=== PATIENT | female | born 1955 | race Caucasian/White ===

== ENCOUNTER 2024-01-25 13:09 | Inpatient (IN) | payer MEDICARE, OTHER, SELFPAY ==
[2024-01-25] VITALS (62 sets, daily range): BP systolic 86–188; BP diastolic 54–126; PULSE 65–88; RESP 0–30; TEMP 34.7–37; O2SAT 93–100; BMI 28.0
--- NOTE | 2024-01-25 13:13 | XRR_ITS ---
PROCEDURE INFORMATION: Exam: XR Chest Exam date and time: 01/25/2024 1:17 PM Age: 68 years old Clinical indication: Other: Weakness TECHNIQUE: Imaging protocol: Radiologic exam of the chest. Views: 1 view. Total images: 1 COMPARISON: No relevant prior studies available. FINDINGS: Tubes, catheters and devices: A bipolar cardiac pacemaker is present via the left subclavian approach with lead tips projecting in location expected for the right atrium and right ventricle. A dual lumen right IJ catheter is present extending into the right atrium. Lungs: Bibasilar pulmonary airspace disease is noted favored to represent compressive atelectasis although other etiologies cannot be excluded. Pleural spaces: Moderate bilateral pleural effusions are present. Heart/Mediastinum: The heart is not enlarged. Bones/joints: No acute osseous abnormality identified. Gastrointestinal tract: Moderate amount of upper abdominal bowel gas. XR/XR chest 1V portable [id number] IMPRESSION: 1. Moderate-sized bilateral pleural effusions. 2. Bibasilar pulmonary opacities favored to represent atelectasis although could obscure other underlying process.
--- NOTE | 2024-01-25 13:14 | ECG_ITS ---
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 Measurements Intervals [place] Rate: 85 P: 26 NM: 155 QRS: 9 QRSD: 89 T: 32 QT: 377 QTc: 449 Interpretive Statements SINUS RHYTHM LOW QRS VOLTAGE [QRS DEFLECTION < 0.5/1.0 mV IN LIMB/CHEST LEADS] POSSIBLE ANTERIOR MYOCARDIAL INFARCTION , PROBABLY OLD [30 ms Q WAVE IN V3/V4, OR R < 0.2 mV IN V4] Diffuse nonspecific T wave changes No previous ECG available for comparison Electronically Signed On 01-25-2024 23:30:49 CDT by Bernarda Oates M.D. [id number]
--- NOTE | 2024-01-25 13:29 | ED_ITS ---
HPI - Weakness 2 General: Chief complaint: Weakness Stated complaint: Hypotensive Time Seen by Provider: 01/25/24 13:10 Source: patient and EMS Mode of arrival: EMS Limitations: no limitations History of Present Illness: 68-year-old female history of end-stage renal disease she is on dialysis Wednesday her last dialysis was Wednesday she states while driving to dialysis today she has been having weakness she had a syncopal event as well. Patient was found to be hypotensive at dialysis center and sent here she did not receive dialysis today she denies any pain anywhere denies any fevers she had some increased swelling to her upper extremities Associated symptoms: Reports syncope; Denies chest pain, chills, dysuria, fever(s), headache(s), nausea or vomiting Review of Systems 2 Const: Reports: fatigue and malaise; Denies: fever(s), chills, body aches or change in appetite ENMT: Denies: throat pain or dental pain Card: Reports: syncope; Denies: chest pain Resp: Denies: dyspnea GI: Denies: abdominal pain, nausea, vomiting or diarrhea : Denies: dysuria Musc: Denies: neck pain or back pain Skin/Breast: Denies: rash Neuro: Denies: headache(s) Physical Exam 2 Const: COMMON NORMALS: patient oriented x3 HENMT: COMMON NORMALS: normocephalic and atraumatic HEAD & SCALP: n ormocephalic and atraumatic Eye: COMMON NORMALS: Equal, round and reactive pupils present and EOMs intact bilaterally PUPIL: Yes Equal, round and reactive pupils present Neck/C-Spine: COMMON NORMALS: full ROM and supple Chest: COMMONS NORMALS: normal inspection of the chest Resp: COMMON NORMALS: normal respiratory effort, No retractions, No use of accessory muscles and clear to auscultation bilaterally AUSCULTATION: clear to auscultation bilaterally Cardio: COMMON NORMALS: regular rate, regular rhythm and No murmurs present (Cardio) RATE: regular rate RHYTHM: regular rhythm Extremity: COMMON NORMALS: full ROM NARRATIVE EXTREMITY EXAM: Skin tear noted to left arm she has swelling 2+ edema of all 4 extremities Neuro: COMMON NORMALS: patient oriented x3, moves all extremities and no focal motor deficits Psych: COMMON NORMALS: mental status grossly normal, Normal thought process present and cooperative THOUGHT PROCESS: Normal thought process present Skin: COMMON NORMALS: no rashes or lesions noted and no wounds GENERAL SKIN EXAM: no rashes or lesions noted Course 2 Vital Signs: Vital signs: Vital Signs Temperature 97.8 F 01/25/24 14:20 Pulse Rate 82 01/25/24 15:46 Respiratory Rate 18 01/25/24 13:44 Blood Pressure 91/73 01/25/24 15:46 Pulse Oximetry 100 01/25/24 15:46 Oxygen Delivery Me thod Room Air 01/25/24 15:46 MDM - Weakness Medical Decision Making Patient presents here after syncopal event she is on dialysis does not receive dialysis treatment today as she was hypotensive at the dialysis clinic her blood pressure here is improved blood work is normal she still having weakness will admit at this time for syncopal event and her hypotension no signs of sepsis did have pleural effusions noted on x-ray Medical Records I reviewed the patient's medical records. Lab Data I reviewed the patient's lab results. 01/25/24 13:41 01/25/24 13:41 Radiology Impressions Chest X-Ray 01/25/24 13:13 IMPRESSION: 1. Moderate-sized bilateral pleural effusions. 2. Bibasilar pulmonary opacities favored to represent atelectasis although could obscure other underlying process. Laboratory Results WBC 3.65 10^3/uL (3.29-11.43) 01/25/24 13:41 RBC 2.92 10^6/uL (3.85-5.65) L 01/25/24 13:41 Hgb 8.70 g/dL (11.27-16.99) L 01/25/24 13:41 Hct 27.2 % (36-47) L 01/25/24 13:41 MCV 93.2 fl (85-98) 01/25/24 13:41 MCH 29.8 pg (27-33) 01/25/24 13:41 MCHC 32.0 g/dL (30-55) 01/25/24 13:41 RDW 15.2 % (12.1-15.1) H 01/25/24 13:41 Plt Count 395 10^3/cmm (157-399) 01/25/24 13:41 MPV 9.0 fL (7.4-10.4) 01/25/24 13:41 Neut % (Auto) 57.0 % 01/25/24 13:41 Lymph % (Auto) 30.1 % 01/25/24 13:41 [place] % (Auto) 7.7 % 01/25/24 13:41 Eos % (Auto) 1.9 % 01/25/24 13:41 Baso % (Auto) 3.0 % 01/25/24 13:41 Neut # (Auto) 2.08 10^3/uL (1.8-7.7) 01/25/24 13:41 Lymph # (Auto) 1.1 10^3/uL (0.8-4.8) 01/25/24 13:41 [place] # (Auto) 0.3 10^3/uL (0.2-0.9) 01/25/24 13:41 Eos # (Auto) 0.1 10^3/uL (0.0-0.8) 01/25/24 13:41 Baso # (Auto) 0.1 10^3/uL (0.0-0.1) 01/25/24 13:41 Nucleated RBC % (auto) 0 % 01/25/24 13:41 Nucleated RBCs # 0.0 /100WBC 01/25/24 13:41 Sodium 134 mmol/L (136-145) L 01/25/24 13:41 Potassium 3.4 mmol/L (3.5-5.1) L 01/25/24 13:41 Chloride 97 mmol/L (98-107) L 01/25/24 13:41 Carbon Dioxide 26 mmol/L (22-29) 01/25/24 13:41 Anion Gap 14.4 (5-19) 01/25/24 13:41 BUN 16 mg/dL (8-23) 01/25/24 13:41 Creatinine 2.6 mg/dL (0.5-0.9) H 01/25/24 13:41 GFR Calculation 18.4 mL/min (90-130) L 01/25/24 13:41 Glucose 76 mg/dL (65-115) 01/25/24 13:41 Calculated Osmolality 278 mOsm/kg (285-295) L 01/25/24 13:41 Lactic Acid 1.7 mmol/L (0.5-2.2) 01/25/24 13:41 Calcium 8.2 mg/dL (8.5-10.5) L 01/25/24 13:41 Magnesium 1.8 mg/dL (1.7-2.3) 01/25/24 13:41 Total Bilirubin 0.3 mg/dL (0.15-1.2) 01/25/24 13:41 AST 9 U/L (0-32) 01/25/24 13:41 ALT < 5 U/L (0-33) 01/25/24 13:41 Alkaline Phosphatase 122 U/L (35-105) H 01/25/24 13:41 Troponin T Baseline 102 ng/L (0-10) H* 01/25/24 13:41 NT-Pro-B Natriuret Pep > 41652 pg/mL (0-125) H 01/25/24 13:41 Total Protein 4.8 g/dL (6.6-8.7) L 01/25/24 13:41 Albumin 2.3 g/dL (3.5-5.2) L 01/25/24 13:41 Globulin 2.5 g/dL (1.3-4.6) 01/25/24 13:41 All radiology interpretation(s) finalized by discharge EKG Data EKG 1: I personally reviewed and interpreted this EKG as follows: EKG interpretation date: 01/25/24 EKG interpretation time: 14:05 Interpretation: nsr hr [address] or t wave abnormalities qr 89 qtc 419 Discharge Plan Discharge Patient Disposition: Admitted As Inpatient Admit Provider: Jacinto Schmidt Clinical Impression: Syncope, ESRD on dialysis, Hypotension Condition: Stable Coding Level of Care Code 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 Related Data Home Medications Medication Instructions Recorded Confirmed apixaban 5 mg tablet (Eliquis) 5 mg PO BID 01/25/24 01/25/24 droxidopa 300 mg capsule 300 mg PO TID PRN parkinsons 01/25/24 01/25/24 ergocalciferol (vitamin D2) 1,250 50,000 mcg PO Q7D 01/25/24 01/25/24 mcg (50,000 unit) capsule fludrocortisone 0.1 mg tablet 0.1 mg PO BID 01/25/24 01/25/24 levothyroxine 125 mcg tablet 125 mcg PO QAM 01/25/24 01/25/24 mupirocin 2 % topical ointment 1 applic topical DAILY 01/25/24 01/25/24 pantoprazole 40 mg tablet,delayed 40 mg PO BID 01/25/24 01/25/24 release Allergies Allergy/AdvReac Type Severity Reaction Status Date / Time No Known Allergies Allergy Verified 01/25/24 14:19
[2024-01-25 13:47] LABS: Basophils # 0.1 10^3/uL (0.0-0.1); Eosinophils # 0.1 10^3/uL (0.0-0.8); Eosinophils % 1.9 %; Hematocrit 27.2 % (36-47); Lymphocytes # 1.1 10^3/uL (0.8-4.8); Lymphocytes % 30.1 %; Mean Corpuscular Hemoglobin 29.8 pg (27-33); Mean Corpuscular Volume 93.2 fl (85-98); Monocytes # 0.3 10^3/uL (0.2-0.9); Monocytes % 7.7 %; Neutrophils # 2.08 10^3/uL (1.8-7.7); Nucleated Red Blood Cells % 0 %; Platelet Count 395 10^3/cmm (157-399); Red Blood Count 2.92 10^6/uL (3.85-5.65); Red Cell Distribution Width 15.2 % (12.1-15.1); White Blood Count 3.65 10^3/uL (3.29-11.43)
[2024-01-25 14:03] LABS: Lactic Sepsis W/Reflex 1.7 mmol/L (0.5-2.2)
--- NOTE | 2024-01-25 14:11 | PC.PHAR ---
per [facility]-Droxidopa 300mg is 3 times daily. Brianne Dillard sets up pt medications.
[2024-01-25 14:13] LABS: Alanine Aminotransferase < 5 U/L (0-33); Albumin Level 2.3 g/dL (3.5-5.2); Alkaline Phosphatase 122 U/L (35-105); Anion Gap 14.4 (5-19); Aspartate Amino Transferase 9 U/L (0-32); Blood Urea Nitrogen 16 mg/dL (8-23); Calcium 8.2 mg/dL (8.5-10.5); Carbon Dioxide 26 mmol/L (22-29); Chloride 97 mmol/L (98-107); Creatinine Clr Calc Pharmacy 23.2702; Globulin 2.5 g/dL (1.3-4.6); Glomerular Filtration Rate 18.4 mL/min (90-130); Glucose 76 mg/dL (65-115); Magnesium 1.8 mg/dL (1.7-2.3); Osmolality Calculated 278 mOsm/kg (285-295); Potassium 3.4 mmol/L (3.5-5.1); Sodium 134 mmol/L (136-145); Total Bilirubin 0.3 mg/dL (0.15-1.2); Total Protein 4.8 g/dL (6.6-8.7)
[2024-01-25 15:01] LABS: Troponin(5th) Baseline 102 ng/L (0-10)
[2024-01-25 15:12] LABS: NT Pro B Type Natriuretic Pept > 70000 pg/mL (0-125)
[2024-01-25] MEDS: cefTRIAXone 1,000 mg SDV 1000 MG IVP (15:40)
[2024-01-25] MEDS: azithromycin 500 MG in sodium chloride 0.9% 250 ML 250 MG IV (15:54)
[2024-01-25 15:57] LABS: Troponin 5 2HR 87.87 ng/L (0-10)
[2024-01-25 15:59] LABS: Troponin 5 2HR Delta -14.13 ABS# (0-10)
--- NOTE | 2024-01-25 16:27 | ECG_ITS ---
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 Measurements Intervals [place] Rate: 75 P: 41 CO: 169 QRS: 1 QRSD: 91 T: 180 QT: 464 QTc: 519 Interpretive Statements SINUS RHYTHM WITH OCCASIONAL SUPRAVENTRICULAR PREMATURE COMPLEXES LOW QRS VOLTAGE IN EXTREMITY LEADS [QRS DEFLECTION < 0.5 mV IN LIMB LEADS] POSSIBLE ANTERIOR MYOCARDIAL INFARCTION , OF INDETERMINATE AGE [30 ms Q WAVE IN V3/V4, OR R < 0.2 mV IN V4] Diffuse nonspecific ST-T changes Compared to ECG 01/25/2024 14:05:39 No significant changes Electronically Signed On 01-25-2024 23:43:16 CDT by Bernarda Oates M.D. [id number]
--- NOTE | 2024-01-25 16:41 | PM.HP ---
Providers/Chief Complaint Admitting Physician: Jacinto Schmidt MD Chief Complaint: Hypotensive History of Present Illness Nikki Venegas is a 68 year old female with a past medical history of neurogenic orthostatic hypotension on droxidopa and fludrocortisone, history of low blood pressure, history of recurrent syncope especially when her legs are dropped, end-stage renal disease on dialysis causes unknown, Melva lift dependent, bedbound, who presents to [facility] due to low blood pressure and syncope. Currently patient is alert oriented x 3, following all commands, blood pressure 91/73 she tells me that to not worry about her blood pressure, as her blood pressure is always low. She tells me that her medical case starts in May 2023, when she was climbing her stairs to her home, she had just returned from work and she passed out. From there she got it admitted to [facility], she developed end-stage renal disease, had a right tunneled dialysis catheter placed, from there she was transferred due to [facility] due to recurrent syncope and low blood pressure, from there she was transferred to [facility] as she tells me they could not figure it out, so from there she was transferred to [facility], she jokes with me that she was considered a resident at [facility] as she was there for a month, she is not exactly sure why she was there for that long but she tells me that she was having issues with low blood pressures, and recurrent syncope, from there she was transferred to [facility] in [place]. She tells me that she did have good physical therapy she got up a good amount of dialysis there, they took about 20 pounds of fluid off of her, and eventually she was discharged home. She has been home for about a month and a half. She gets dialysis the outpatient dialysis center she tells me that she does frequently at times pass out, which is not unusual for her, especially when her blood pressures drop when she stands up her legs are dropped this is not unusual. This is what was happening she tells me at [facility] and at [facility] and they could not figure why this was happening, they told her that she had something called neurogenic orthostatic hypotension, but they could not find any other reason why, she denies having a heart attack, no stroke no diabetes, no issues with her liver, she denies being intubated, she is quite fluid overloaded currently she has diffuse anasarca, weeping edema of her both arms or legs, she tells me that she has been like this for about a week or so, they did take fluid off of her at the dialysis center more than a week ago, but since then they have been taking fluid off of her because of her low blood pressure, she is supposed to use a droxidopa before dialysis. She is not exactly sure why she is on dialysis, but that she is in renal failure she does not urinate anymore but she is not exactly sure what is the cause. She tells me that before her fall in May she was fully functional individual able to work, was able to take care of herself, now she is fully dependent on her Review of Systems Const: Denies: fever(s) Eyes: Denies: change in vision Card: Denies: chest pain Resp: Denies: dyspnea GI: Denies: abdominal pain : Denies: flank pain Musc: Denies: neck pain or back pain Neuro: Denies: headache(s) Psych: Denies: anxiety Medications/Allergies Home Medications Medication Instructions Recorded Confirmed Last Taken Type apixaban 5 mg tablet (Eliquis) 5 mg PO BID 01/25/24 01/25/24 01/25/24 History droxidopa 300 mg capsule 300 mg PO TID PRN parkinsons 01/25/24 01/25/24 Unknown History ergocalciferol (vitamin D2) 1,250 50,000 mcg PO Q7D 01/25/24 01/25/24 01/23/24 History mcg (50,000 unit) capsule fludrocortisone 0.1 mg tablet 0.1 mg PO BID 01/25/24 01/25/24 01/25/24 History levothyroxine 125 mcg tablet 125 mcg PO QAM 01/25/24 01/25/24 01/25/24 History mupirocin 2 % topical ointment 1 applic topical DAILY 01/25/24 01/25/24 Unknown History pantoprazole 40 mg tablet,delayed 40 mg PO BID 01/25/24 01/25/24 01/25/24 History release Allergies Allergy/AdvReac Type Severity Reaction Status Date / Time No Known Allergies Allergy Verified 01/25/24 14:19 PFSH Acute PFSH: Medical History (Updated 01/25/24 @ 16:56 by Jacinto Schmidt MD) Chronic hypotension Recurrent syncope Neurogenic orthostatic hypotension Surgical History (Updated 01/25/24 @ 16:51 by Jacinto Schmidt MD) S/P dialysis catheter insertion History of permanent cardiac pacemaker placement Social History (Updated 01/25/24 @ 16:51 by Jacinto Schmidt MD) Smoking and tobacco/nicotine status: never used tobacco/nicotine Alcohol intake: never Substance/Drug Use: never Vitals/I&O/Wt Last Vital Signs Temp 97.8 F 01/25/24 14:20 Pulse 82 01/25/24 15:46 Resp 18 01/25/24 13:44 BP 91/73 01/25/24 15:46 Pulse Ox 100 01/25/24 15:46 O2 Del Method Room Air 01/25/24 15:46 Weight last 48 hrs Weight 80.739 kg Physical Exam Const: COMMON NORMALS: no acute distress and patient oriented x3 OTHER: Ill-appearing HENMT: COMMON NORMALS: normocephalic HEAD & SCALP: normocephalic Eye: COMMON NORMALS: Equal, round and reactive pupils present and EOMs intact bilaterally Neck/C-Spine: COMMON NORMALS: no JVD Lymph: LYMPHATIC: no lymphadenopathy noted Resp: COMMON NORMALS: normal respiratory effort, No retractions, No use of accessory muscles and clear to auscultation bilaterally AUSCULTATION: clear to auscultation bilaterally Cardio: COMMON NORMALS: regular rate, regular rhythm, S1 normal heart sound present and S2 normal heart sound present RATE: regular rate RHYTHM: regular rhythm HEART SOUNDS: S1 normal heart sound present and S2 normal heart sound present GI: COMMON NORMALS: Normal to inspection, nondistended, normoactive bowel sounds present, Soft to palpation and non-tender Extremity: NARRATIVE EXTREMITY EXAM: 2+ pitting edema, generalized anasarca, edema of both arms Neuro: COMMON NORMALS: patient oriented x3, CN's II-XII intact bilaterally and moves all extremities Psych: COMMON NORMALS: mental status grossly normal Data 01/25/24 13:41 01/25/24 13:41 Micro: Microbiology 01/25/24 14:14 Blood Culture - Preliminary Blood SPECIMEN COLLECTED 01/25/24 14:10 Blood Culture - Preliminary Blood SPECIMEN COLLECTED A&P Assessment and plan (1) Chronic hypotension: (2) Chronic orthostatic hypotension: (3) Recurrent syncope: (4) Neurogenic orthostatic hypotension: (5) Hypotension: (6) ESRD on dialysis: (7) Bilateral pleural effusion: (8) Hypoalbuminemia: Plan Chronic neurogenic orthostatic hypotension, with chronic recurrent syncope, with chronic hypotension -It seems as if patient is not responding that well to droxidopa 300 mg 3 times daily -She is never been on midodrine -The issue with dialysis is she is either developing hypotension, recurrent syncope during dialysis, -But she does very well when she is placed in Trendelenburg and they can dialyze her -When she was at [facility] she tells her that took almost 20 pounds of fluid off of her -Now with fluid overload, anasarca, CHF exacerbation, pulmonary edema, bilateral pleural effusions, BNP over 70,000 Plan -Will monitor in ICU -Placed on midodrine 10 3 times daily -Continue droxidopa -Will consider Levophed based on clinical progress, will be a short-term option, but will need a better long-term option as this is going to be an issue at dialysis as outpatient -Consult nephrology for dialysis -Monitor for syncopal episodes if so placed in Trendelenburg, -Continue fludrocortisone -Follow inflammatory markers, UA -NSTEMI, no chest pain complaints, aspirin, statin, Eliquis, tourniquet is concerned multiple telemetry monitoring -She tells me that she is on Eliquis for atrial fibrillation, continue for now -She also has hyperlipidemia, with anasarca, can consider albumin with dialysis -Will have to get medical records from [facility] as she is unsure of what happened during that hospitalization -Check TSH -Cardiac echo -DNR/DNI, confirmed with the patient multiple times -Eliquis for DVT prophylaxis Attestations Medical Necessity Statement*: Patient requires hospitalization, inpatient, greater than 2 midnights, for CHF exacerbation fluid overload bilateral pleural effusions, anasarca, NSTEMI, recurrent syncope Diagnoses Chronic hypotension I95.89 Chronic orthostatic hypotension I95.1 Recurrent syncope R55 Neurogenic orthostatic hypotension G90.3 Hypotension I95.9 ESRD on dialysis N18.6; Z99.2 Bilateral pleural effusion J90 Hypoalbuminemia E88.09
[2024-01-25 17:19] LABS: INR 1.68 (0.8-1.2)
--- NOTE | 2024-01-25 17:27 | USCV_ITS ---
Nikki Venegas Age: 68 Gender: F : 1955 Exam Date: 01/25/2024 18:57 Ordering Phys: Jacinto Schmidt MD Technologist: JOSE [place] [facility] [place]: NSTEMI, end-stage renal disease , on dialysis, weakness, syncope. BP: 91 / 73 HR: 72 Rhythm: Sinus Technical Quality: Adequate MEASUREMENTS (Male / Female) Normal Values 2D ECHO LV Diastolic Diameter PLAX 3.5 cm 4.2 - 5.9 / 3.9 - 5.3 cm IVS Diastolic Thickness 1.6 cm 0.6 - 1.0 / 0.6 - 0.9 cm IVS Systolic Thickness 2.3 cm LVPW Diastolic Thickness 1.3 cm 0.6 - 1.0 / 0.6 - 0.9 cm LVPW Systolic Thickness 2.5 cm LVOT Diameter 2.3 cm LV Ejection Fraction 2D Teich 76.2 % LV Ejection Fraction MOD 4C 67.9 % LV Ejection Fraction MOD 2C 60.5 % LV Ejection Fraction 2C AL 61.1 % LA Diameter 2.7 cm Aorta at Sinotubular Diameter 3.4 cm IVC Diameter 0.9 cm M-MODE LA Ao Ratio MM 1.0 AV Cusp Separation MM 1.8 cm DOPPLER AV Peak Velocity 92.0 cm/s LVOT Peak Velocity 83.0 cm/s AV Area Cont Eq vti 4.0 cm squared AV Area Cont Eq pk 3.6 cm squared MV Peak Velocity 94.0 cm/s MV Area PHT 3.9 cm squared Mitral E to A Ratio 0.7 TV Peak E Velocity 32.0 cm/s PV Peak Velocity 76.0 cm/s FINDINGS Left Ventricle Normal LV size and ejection fraction of 68%. No gross wall motion abnormality.Grade I/IV diastolic dysfunction (abnormal relaxation filling pattern), normal to mildly elevated filling pressures. Right Ventricle Normal size and ejection fraction Right Atrium Appears to be of normal size Left Atrium Appears to be of normal size Mitral Valve Moderate mitral annular calcification. Aortic Valve Thickened aortic valve. Tricuspid Valve No gross abnormalities noted Pulmonic Valve Pulmonic valve not well visualized. Pericardium Small echo-free space anteriorly suggesting pericardial effusion Aorta Large echo-free space in the anterolateral region apical lateral region with echodensities, suggesting exudative pleural effusion IVC Inferior vena cava not visualized. CONCLUSIONS Normal LV size and ejection fraction of 68%. No gross wall motion abnormality.Grade I/IV diastolic dysfunction (abnormal relaxation filling pattern), normal to mildly elevated filling pressures. Moderate mitral annular calcification. Possibly normal cardiac chamber sizes. Thickened aortic valve. Possibly large exudative pleural effusion Features of small pericardial effusion No similar previous studies are available for comparison Dr Bernarda Oates MD [facility] (Electronically Signed) Final Date: 25 January 2024 21:25 S
--- NOTE | 2024-01-25 17:29 | PC.NURSE ---
Patient arrived to ICU around approximately 1520. V/S in chart, temp 94.4, dry linens and warm blankets applied to patient.
[2024-01-25] MEDS: aspirin 81 mg EC Tablet PO (17:38)
[2024-01-25] MEDS: fludrocortisone 0.1 mg Tablet PO (17:38)
[2024-01-25] MEDS: midodrine 5 mg TABLET 10 MG PO ×2 (17:38→20:38)
[2024-01-25] MEDS: apixaban 5 mg Tablet PO (17:38)
[2024-01-25] MEDS: pantoprazole DR 40 mg Tablet PO (17:39)
[2024-01-25 18:24] LABS: Procalcitonin 0.14 ng/mL (0-0.5); Thyroid Stimulating Hormone 2.11 uIU/mL (0.27-4.20)
[2024-01-25 18:36] LABS: C Reactive Protein 3.5 mg/L (0.0-4.9); Chol HDL Ratio 4.25 mg/dL (0.0-4.40); Cholesterol 217 mg/dL (0-200); Creatine Phosphokinase 16 U/L (26-192); HDL Cholesterol 51 mg/dL (60-100); LDL Cholesterol Calculated 139 mg/dL (50-129); LDL HDL Ratio 2.73 RATIO (0.00-3.22); Triglycerides 135 mg/dL (0-150)
--- NOTE | 2024-01-25 19:51 | P.CONIM_ITS ---
Providers/Reason For Consult 2 Consulting Physician/Specialty*: kommana/Nephrology Reason for Consult*: ESRD Attending Physician: Jacinto Schmidt MD History of Present Illness History of Present Illness Nikki Venegas is a 68 year old female Patient is a 68-year-old female with past medical history of end-stage renal disease on hemodialysis per Wednesday schedule, has autonomic dysfunction and orthostatic hypotension currently on droxidopa and fludrocortisone, has recurrent syncopal episodes was sent to the emergency department due to low blood pressure and near syncope. Reports blood pressure always fluctuates and usually runs low low dialysis. Patient had a prior extensive workup and for long past physicians at [facility] due to recurrent syncope and hypotension. In the emergency department blood pressure was at 91/73, was on room air, lab data shows sodium of 134 potassium of 3.4 and creatinine of 2.6 and hemoglobin of 8.7. . Review of Systems 2 Narrative: negative Medications/Allergies Home Medications Medication Instructions Recorded Confirmed Last Taken Type apixaban 5 mg tablet (Eliquis) 5 mg PO BID 01/25/24 01/25/24 01/25/24 History droxidopa 300 mg capsule 300 mg PO TID PRN parkinsons 01/25/24 01/25/24 Unknown History ergocalciferol (vitamin D2) 1,250 50,000 mcg PO Q7D 01/25/24 01/25/24 01/23/24 History mcg (50,000 unit) capsule fludrocortisone 0.1 mg tablet 0.1 mg PO BID 01/25/24 01/25/24 01/25/24 History levothyroxine 125 mcg tablet 125 mcg PO QAM 01/25/24 01/25/24 01/25/24 History mupirocin 2 % topical ointment 1 applic topical DAILY 01/25/24 01/25/24 Unknown History pantoprazole 40 mg tablet,delayed 40 mg PO BID 01/25/24 01/25/24 01/25/24 History release Allergies Allergy/AdvReac Type Severity Reaction Status Date / Time No Known Allergies Allergy Verified 01/25/24 14:19 Current Medications Generic Name Dose Route Start Last Admin Trade Name Freq PRN Reason Stop Dose Admin Apixaban 5 mg 01/25/24 18:00 01/25/24 17:38 Apixaban 5 Mg Tablet PO 5 mg BID AKOSUA Administration Aspirin 81 mg 01/25/24 17:27 01/25/24 17:38 Aspirin 81 Mg Ec Tablet PO 81 mg DAILY AKOSUA Administration Fludrocortisone Acetate 0.1 mg 01/25/24 18:00 01/25/24 17:38 Fludrocortisone 0.1 Mg Tablet PO 0.1 mg BID AKOSUA Administration Midodrine 10 mg 01/25/24 17:27 01/25/24 17:38 Midodrine 5 Mg Tablet PO 10 mg Q8H AKOSUA Administration Pantoprazole Sodium 40 mg 01/25/24 18:00 01/25/24 17:[address] 40 Mg Tablet PO 40 mg BID AKOSUA Administration PFSH Acute 2 PFSH: Medical History (Updated 01/25/24 @ 16:56 by Jacinto Schmidt MD) Chronic hypotension Recurrent syncope Neurogenic orthostatic hypotension Surgical History (Updated 01/25/24 @ 16:51 by Jacinto Schmidt MD) S/P dialysis catheter insertion History of permanent cardiac pacemaker placement Social History (Updated 01/25/24 @ 16:51 by Jacinto Schmidt MD) Smoking and tobacco/nicotine status: never used tobacco/nicotine Alcohol intake: never Substance/Drug Use: never Vitals/I&O/Wt Last Vital Signs Temp 94.4 F L 01/25/24 18:00 Pulse 76 01/25/24 18:00 Resp 16 01/25/24 18:00 BP 112/76 01/25/24 18:00 Pulse Ox 100 01/25/24 17:59 O2 Del Method Room Air 01/25/24 17:59 01/25/24 01/25/24 01/25/24 06:59 14:59 22:59 Intake Total 250 / 250 Balance 250 / 250 Weight last 48 hrs Weight 79 kg Weight 80.739 kg Physical Exam 2 Narrative: awake , alert no distress S1S2 RRR per report Lungs clear per mediicne No edema Data 01/26/24 04:11 01/25/24 13:41 Micro: Microbiology 01/25/24 14:14 Blood Culture - Preliminary Blood SPECIMEN COLLECTED 01/25/24 14:10 Blood Culture - Preliminary Blood SPECIMEN COLLECTED A&P Assessment and plan (1) ESRD on dialysis: Plan 1. End-stage renal disease: Etiology unclear, was started on dialysis in May 2023 via tunneled catheter. -Patient has fluctuating blood pressures and orthostatic hypotension/probable autonomic dysfunction Dippel prior episodes of recurrent syncope and hypotension during dialysis. -Takes droxidopa as well as fludrocortisone and as needed midodrine -Will plan on dialysis today, will give 1 dose of midodrine 30 minutes prior to dialysis and filtration as tolerated. Patient is volume overloaded 2. Recurrent syncope and orthostatic hypotension: Patient was extensively worked up in the past currently on fludrocortisone, currently blood pressures are stable in the 90s to 1 teens range. 3. Anemia: Will give WILFRIDO 4. HypothyroidISM 5. MBD: Will check Phos and vitamin D levels Patient evaluated using audiovisual cart. Time spent 40 minutes Consult Attestations 2 Medical Necessity Statement: per eliel Coding Level of Care Code Acute Code for Chg Fwd Diagnoses ESRD on dialysis N18.6; Z99.2
--- NOTE | 2024-01-25 20:27 | ECG_ITS ---
[facility] Test Date: 2024-01-25 Pat Name: Nikki Venegas Department: Room: ICU09 Gender: Female [employer]: : 1955 Requested By: Dylan Buchanan Order Number: [id number] Milvia MD: Bernarda Oates M.D. Measurements Intervals [place] Rate: 73 P: 38 ID: 150 QRS: 22 QRSD: 92 T: 210 QT: 452 QTc: 500 Interpretive Statements SINUS RHYTHM LOW QRS VOLTAGE IN EXTREMITY LEADS [QRS DEFLECTION < 0.5 mV IN LIMB LEADS] POSSIBLE ANTERIOR MYOCARDIAL INFARCTION , OF INDETERMINATE AGE [30 ms Q WAVE IN V3/V4, OR R < 0.2 mV IN V4] Diffuse nonspecific ST-T changes Compared to ECG 01/25/2024 17:39:02 No significant changes Electronically Signed On 01-25-2024 23:43:39 CDT by Bernarda Oates M.D. [id number]
--- NOTE | 2024-01-25 20:48 | PC.NURSE ---
1934: Yandel(EDITD) approached me wanted to report that this patient has Bilateral Large Pleural Effusions that I would call Critical Findings . 1937: Dr. Thurman was notified via phone report. No new orders. He requested to let nephrology know. 1951: Dr. Palmer was notified of the findings. She wanted to do dialysis for tomorrow and to change the Midodrine from 0127 and 0900 to 2300 and 0700. 1954: Dr Palmer called back and wanted to do dialysis tonight and change the Midodrine to now and 0700.
[2024-01-25] MEDS: atorvastatin 40 mg Tablet PO (20:57)
[2024-01-25 22:12] LABS: Troponin 5 6HR 85.92 ng/L (0-10)
[2024-01-25 22:14] LABS: Troponin 5 6HR Delta -16.08 ng/L (0-12)
[2024-01-25 22:26] LABS: Erythrocyte Sedimentation Rate 1 mm/hr (0-15)
[2024-01-25 22:54] LABS: Hepatitis B Surface AB 3.8 (11.5-1000); Hepatitis B Surface Antigen Non-Reactive (Nonreactive)
[2024-01-25] MEDS: heparin, porcine 1,000 unit/mL INJ 10 mL 1000 UNIT IV (23:23)
[2024-01-25] MEDS: heparin, porcine 1,000 unit/mL INJ 10 mL 10000 UNIT INTRACATH (23:24)
--- NOTE | 2024-01-25 23:31 | PC.HD ---
RIJ tunnelled catheter insertion site has pencil eraser sized redness under the cath, brown crusty debris noted to be adhered to underside of cath at insertion point, debris removed and site cleaned with CHG and redressed with SkinPrep, BRANDAN, and Covaderm dressing.
[2024-01-25] MEDS: albumin 12.5 GM/50 ML VIAL IV (23:52)
[2024-01-26] VITALS (72 sets, daily range): BP systolic 95–170; BP diastolic 71–101; PULSE 60–79; RESP 11–19; TEMP 34.9–36.2; O2SAT 94–100; BMI 26.5
[2024-01-26] MEDS: albumin 12.5 GM/50 ML VIAL IV (00:27)
[2024-01-26 02:02] LABS: Estmated Average Glucose 94; Hemoglobin A1C 4.9 % (4.0-6.0)
[2024-01-26 04:21] LABS: Basophils # 0.1 10^3/uL (0.0-0.1); Basophils % 1.2 %; Eosinophils % 0.7 %; Hematocrit 21.8 % (36-47); Lymphocytes # 1.7 10^3/uL (0.8-4.8); Lymphocytes % 42.2 %; Mean Corpuscular HGB Conc 32.6 g/dL (30-55); Mean Corpuscular Volume 95.2 fl (85-98); Mean Platelet Volume 9.4 fL (7.4-10.4); Monocytes # 0.5 10^3/uL (0.2-0.9); Monocytes % 11.5 %; Neutrophils % 44.2 %; Nucleated Red Blood Cells % 0 %; Platelet Count 307 10^3/cmm (157-399); Red Blood Count 2.29 10^6/uL (3.85-5.65); Red Cell Distribution Width 15.4 % (12.1-15.1); White Blood Count 4.08 10^3/uL (3.29-11.43)
[2024-01-26] MEDS: levothyroxine 125 mcg Tablet PO (05:55)
--- NOTE | 2024-01-26 08:13 | PM.PN ---
Subjective Subjective: s/p hemodialysis last night with 2.5 L ultrafiltration Medications: Reviewed: Yes Vitals/I&O/Wt Last Vital Signs Temp 96.9 F L 01/26/24 04:00 Pulse 66 01/26/24 06:00 Resp 13 01/26/24 04:10 BP 167/98 01/26/24 04:10 Pulse Ox 100 01/26/24 04:10 O2 Del Method Room Air 01/26/24 00:00 O2 Flow Rate 2 01/25/24 19:00 01/25/24 01/26/24 01/26/24 22:59 06:59 14:59 Intake Total 250 / 250 585 / 835 Output Total 0 / 0 3000 / 3000 Balance 250 / 250 -2415 / -2165 Weight last 48 hrs Weight 74.5 kg Weight 79.5 kg Weight 79 kg Weight 80.739 kg Physical Exam Narrative: awake , alert no distress S1S2 RRR per report Lungs clear per [facility] No edema Data 01/26/24 04:11 01/25/24 13:41 Micro: Microbiology 01/25/24 14:14 Blood Culture - Preliminary Blood SPECIMEN COLLECTED 01/25/24 14:10 Blood Culture - Preliminary Blood SPECIMEN COLLECTED A&P Assessment and plan (1) ESRD on dialysis: Plan 1. End-stage renal disease: Etiology unclear, was started on dialysis in May 2023 via tunneled catheter. -Patient has fluctuating blood pressures and orthostatic hypotension/probable autonomic dysfunction, prior episodes of recurrent syncope and hypotension during dialysis. -Takes droxidopa as well as fludrocortisone and as needed midodrine - Patient is volume overloaded - s/p HD last night with 2.5 L UF , Tolerated well , with no BP drop -BP elevated , decrease midodrine to 5 mg TID 2. Recurrent syncope and orthostatic hypotension: Patient was extensively worked up in the past currently on fludrocortisone, currently blood pressures are stable in the 90s to 1 teens range. 3. Anemia: Will give WILFRIDO 4. HypothyroidISM 5. MBD: Will check Phos and vitamin D levels Patient evaluated using audiovisual cart. Time spent 40 minutes Attestations Medical Necessity Statement*: PER [facility] Coding Level of Care Code Acute Code for Chg Fwd Diagnoses ESRD on dialysis N18.6; Z99.2
[2024-01-26] MEDS: fludrocortisone 0.1 mg Tablet PO ×2 (08:49→17:02)
[2024-01-26] MEDS: apixaban 5 mg Tablet PO (08:49)
[2024-01-26] MEDS: midodrine 5 mg TABLET PO ×2 (08:49→17:03)
[2024-01-26] MEDS: pantoprazole DR 40 mg Tablet PO ×2 (08:49→17:02)
[2024-01-26] MEDS: aspirin 81 mg EC Tablet PO (08:49)
[2024-01-26] MEDS: epoetin alfa 10,000 unit/mL INJ 10000 UNIT SUBCUT (09:14)
[2024-01-26 11:07] LABS: Anion Gap 13.4 (5-19); Blood Urea Nitrogen 9 mg/dL (8-23); Calcium 7.8 mg/dL (8.5-10.5); Carbon Dioxide 25 mmol/L (22-29); Chloride 101 mmol/L (98-107); Glomerular Filtration Rate 28.2 mL/min (90-130); Glucose 70 mg/dL (65-115); Osmolality Calculated 279 mOsm/kg (285-295); Potassium 3.4 mmol/L (3.5-5.1); Sodium 136 mmol/L (136-145)
[2024-01-26 11:13] LABS: Creatinine Clr Calc Pharmacy 31.7315
[2024-01-26 11:21] LABS: Ferritin 355 ng/mL (15-150); Iron 24 ug/dL (37-145); Phosphorus 1.8 mg/dL (2.5-4.5)
[2024-01-26 11:37] LABS: 25 Hydroxy Vitamin D 74 ng/mL (30-100)
--- NOTE | 2024-01-26 15:12 | PM.PN ---
Subjective Subjective: Patient was seen this morning, she denies any chest pain, no palpitations, no lightheadedness, dizziness, she denies any presyncopal or syncopal symptoms, denies any fevers or chills Vitals/I&O/Wt Last Vital Signs Temp 97.1 F L 01/26/24 14:27 Pulse 76 01/26/24 14:27 Resp 14 01/26/24 14:27 BP 121/79 01/26/24 13:27 Pulse Ox 95 01/26/24 14:27 O2 Del Method Room Air 01/26/24 00:00 O2 Flow Rate 2 01/25/24 19:00 01/26/24 01/26/24 01/26/24 06:59 14:59 22:59 Intake Total 585 / 835 280 / 280 Output Total 3000 / 3000 Balance -2415 / -2165 280 / 280 Weight last 48 hrs Weight 74.5 kg Weight 79.5 kg Weight 79 kg Weight 80.739 kg Physical Exam Const: COMMON NORMALS: no acute distress and patient oriented x3 Resp: COMMON NORMALS: normal respiratory effort, No retractions, No use of accessory muscles and clear to auscultation bilaterally AUSCULTATION: clear to auscultation bilaterally Cardio: COMMON NORMALS: regular rate, regular rhythm, S1 normal heart sound present and S2 normal heart sound present RATE: regular rate RHYTHM: regular rhythm HEART SOUNDS: S1 normal heart sound present and S2 normal heart sound present GI: COMMON NORMALS: Normal to inspection, nondistended, normoactive bowel sounds present and non-tender Extremity: COMMON NORMALS: no pedal edema Neuro: COMMON NORMALS: patient oriented x3 Psych: COMMON NORMALS: mental status grossly normal Data 01/26/24 04:11 01/26/24 10:35 Micro: Microbiology 01/25/24 14:10 Blood Culture - Preliminary Blood NEGATIVE TO DATE 01/25/24 14:14 Blood Culture - Preliminary Blood NEGATIVE TO DATE A&P Assessment and plan (1) Chronic hypotension: (2) Chronic orthostatic hypotension: (3) Recurrent syncope: (4) Neurogenic orthostatic hypotension: (5) Hypotension: (6) ESRD on dialysis: (7) Bilateral pleural effusion: (8) Hypoalbuminemia: Plan Chronic neurogenic orthostatic hypotension, with chronic recurrent syncope, with chronic hypotension -It seems as if patient is not responding that well to droxidopa 300 mg 3 times daily -She is never been on midodrine -The issue with dialysis is she is either developing hypotension, recurrent syncope during dialysis, -But she does very well when she is placed in Trendelenburg and they can dialyze her -[facility] tells her that took almost 20 pounds of fluid off of her -Now with fluid overload, anasarca, CHF exacerbation, pulmonary edema, bilateral pleural effusions, BNP over 70,000 Plan -Will monitor in ICU -Placed on midodrine 10 3 times daily -Continue droxidopa -No issues with dialysis last night, plan dialysis tomorrow -Consult nephrology for dialysis -Monitor for syncopal episodes if so placed in Trendelenburg, -Continue fludrocortisone -Follow inflammatory markers, UA -NSTEMI, no chest pain complaints, aspirin, statin, Eliquis, telemetry monitoring CONCLUSIONS Normal LV size and ejection fraction of 68%. No gross wall motion abnormality.Grade I/IV diastolic dysfunction (abnormal relaxation filling pattern), normal to mildly elevated filling pressures. Moderate mitral annular calcification. Possibly normal cardiac chamber sizes. Thickened aortic valve. Possibly large exudative pleural effusion Features of small pericardial effusion No similar previous studies are available for comparison -She tells me that she is on Eliquis for atrial fibrillation, given anemia hold Eliquis -She also has hyperlipidemia, with anasarca, can consider albumin with dialysis -Will have to get medical records from [facility] as she is unsure of what happened during that hospitalization -Check TSH, within normal limits -Acute anemia, will hold Eliquis transfuse 1 unit PRBC -DNR/DNI, confirmed with the patient multiple times -Eliquis for DVT prophylaxis Attestations Medical Necessity Statement*: Patient requires hospitalization for acute anemia requiring transfusion, fluid overload requiring dialysis, syncopal episode Diagnoses Chronic hypotension I95.89 Chronic orthostatic hypotension I95.1 Recurrent syncope R55 Neurogenic orthostatic hypotension G90.3 Hypotension I95.9 ESRD on dialysis N18.6; Z99.2 Bilateral pleural effusion J90 Hypoalbuminemia E88.09
--- NOTE | 2024-01-26 16:01 | PC.NURSE ---
This RN attempted to get oral and axillary temp on pt and was unsuccessful. This RN did a rectal temp and got 94.8F. This RN notified the MD. Pt is comfortable and has no complaints at this time.
[2024-01-26 16:28] LABS: Glucose Point of Care 100 mg/dL (70-110)
--- NOTE | 2024-01-26 16:28 | PC.NURSE ---
Pt placed on bear hugger per MD request. Pt is resting comfortably in bed, no complaints at this time.
[2024-01-26 18:11] LABS: Hematocrit 30.1 % (36-47)
--- NOTE | 2024-01-26 18:22 | PC.NURSE ---
This RN rechecked the rectal temperature after pt was under the bear hugger for about 2 hours. Rectal temp was 95.1. This RN notified the MD, told this RN to continue monitoring and keep bear hugger on. This RN also notified MD about the pt skin tear on the left arm and redressed with non-adherent guaze, ABD dressing, kerlix and anjali bandage. Pt is resting comfortably in bed with visitors at the bedside.
[2024-01-26] MEDS: atorvastatin 40 mg Tablet PO (20:17)
[2024-01-27] VITALS (8 sets, daily range): BP systolic 120–163; BP diastolic 79–104; PULSE 72–88; RESP 14–18; TEMP 36.5–37.4; O2SAT 92–97
[2024-01-27] MEDS: midodrine 5 mg TABLET PO ×3 (00:30→15:19)
--- NOTE | 2024-01-27 01:42 | PC.NURSE ---
Bearhugger removed at 00:00 this morning for temp reaching 99.3 rectally bearhugger is still off of patient at this time with a temp of 99.1 rectally
[2024-01-27 05:14] LABS: Basophils # 0.1 10^3/uL (0.0-0.1); Basophils % 1.3 %; Eosinophils # 0.1 10^3/uL (0.0-0.8); Eosinophils % 1.3 %; Hematocrit 24.3 % (36-47); Lymphocytes # 1.5 10^3/uL (0.8-4.8); Lymphocytes % 32.5 %; Mean Corpuscular HGB Conc 32.5 g/dL (30-55); Mean Corpuscular Hemoglobin 29.4 pg (27-33); Mean Corpuscular Volume 90.3 fl (85-98); Mean Platelet Volume 9.3 fL (7.4-10.4); Monocytes # 0.5 10^3/uL (0.2-0.9); Monocytes % 10.6 %; Neutrophils # 2.43 10^3/uL (1.8-7.7); Neutrophils % 53.9 %; Nucleated Red Blood Cells % 0 %; Platelet Count 326 10^3/cmm (157-399); Red Blood Count 2.69 10^6/uL (3.85-5.65); Red Cell Distribution Width 16.8 % (12.1-15.1); White Blood Count 4.52 10^3/uL (3.29-11.43)
[2024-01-27] MEDS: levothyroxine 125 mcg Tablet PO (05:29)
[2024-01-27 05:32] LABS: Anion Gap 9.6 (5-19); Blood Urea Nitrogen 11 mg/dL (8-23); Calcium 7.7 mg/dL (8.5-10.5); Carbon Dioxide 28 mmol/L (22-29); Chloride 103 mmol/L (98-107); Creatinine Clr Calc Pharmacy 24.3968; Glomerular Filtration Rate 20.2 mL/min (90-130); Glucose 85 mg/dL (65-115); Osmolality Calculated 283 mOsm/kg (285-295); Potassium 3.6 mmol/L (3.5-5.1); Sodium 137 mmol/L (136-145)
[2024-01-27] MEDS: fludrocortisone 0.1 mg Tablet PO ×2 (08:16→17:45)
[2024-01-27] MEDS: pantoprazole DR 40 mg Tablet PO (08:16)
[2024-01-27 10:03] LABS: LAB Peripheral Smear Sent for Review
[2024-01-27 10:20] LABS: Folate Level 3.7 ng/mL (4.8-37.3)
[2024-01-27 10:21] LABS: Vitamin B12 840 pg/mL (232-1245)
--- NOTE | 2024-01-27 10:38 | P.PN_ITS ---
Subjective 2 Subjective: no new complaints bp stable Medications: Reviewed: Yes Vitals/I&O/Wt Last Vital Signs Temp 98.8 F 01/27/24 07:31 Pulse 85 01/27/24 07:31 Resp 14 01/27/24 07:31 BP 129/83 01/27/24 07:31 Pulse Ox 94 01/27/24 07:31 O2 Del Method Room Air 01/27/24 07:31 O2 Flow Rate 2 01/25/24 19:00 01/26/24 01/27/24 01/27/24 22:59 06:59 14:59 Intake Total 350 / 630 0 / 630 120 / 120 Balance 350 / 630 0 / 630 120 / 120 Weight last 48 hrs Weight 78.608 kg Weight 74.5 kg Weight 79.5 kg Weight 79 kg Weight 80.739 kg Physical Exam 2 Narrative: awake , alert no distress S1S2 RRR per report Lungs clear per mediicne No edema Data 01/28/24 03:06 01/28/24 03:06 Micro: Microbiology 01/25/24 14:10 Blood Culture - Preliminary Blood NEGATIVE TO DATE 01/25/24 14:14 Blood Culture - Preliminary Blood NEGATIVE TO DATE A&P Assessment and plan (1) ESRD on dialysis: Plan 1. End-stage renal disease: Etiology unclear, was started on dialysis in May 2023 via tunneled catheter. -Patient has fluctuating blood pressures and orthostatic hypotension/probable autonomic dysfunction, prior episodes of recurrent syncope and hypotension during dialysis. -Takes droxidopa as well as fludrocortisone and as needed midodrine - Patient is volume overloaded -plan for HD today -BP stable , continue midodrine to 5 mg TID 2. Recurrent syncope and orthostatic hypotension: Patient was extensively worked up in the past currently on fludrocortisone, currently blood pressures are stable in the 90s to 1 teens range. 3. Anemia: Will give WILFRIDO 4. HypothyroidISM 5. MBD: Will check Phos and vitamin D levels Patient evaluated using audiovisual cart. Time spent 40 minutes Attestations 2 Medical Necessity Statement*: per medicine Coding Level of Care Code Acute Code for Chg Fwd Diagnoses ESRD on dialysis N18.6; Z99.2
--- NOTE | 2024-01-27 11:37 | PM.PN ---
Subjective Subjective: Patient was seen this morning, she is alert awake, following all commands, denies any lightheadedness, no dizziness, no nausea, no vomiting Vitals/I&O/Wt Last Vital Signs Temp 98.6 F 01/27/24 11:14 Pulse 85 01/27/24 11:14 Resp 17 01/27/24 11:14 BP 135/89 01/27/24 11:14 Pulse Ox 93 01/27/24 11:14 O2 Del Method Room Air 01/27/24 11:14 O2 Flow Rate 2 01/25/24 19:00 01/26/24 01/27/24 01/27/24 22:59 06:59 14:59 Intake Total 350 / 630 0 / 630 120 / 120 Balance 350 / 630 0 / 630 120 / 120 Weight last 48 hrs Weight 78.608 kg Weight 74.5 kg Weight 79.5 kg Weight 79 kg Weight 80.739 kg Physical Exam Const: COMMON NORMALS: no acute distress and patient oriented x3 Resp: COMMON NORMALS: normal respiratory effort, No retractions, No use of accessory muscles and clear to auscultation bilaterally AUSCULTATION: clear to auscultation bilaterally Cardio: COMMON NORMALS: regular rate, regular rhythm, S1 normal heart sound present and S2 normal heart sound present RATE: regular rate RHYTHM: regular rhythm HEART SOUNDS: S1 normal heart sound present and S2 normal heart sound present GI: COMMON NORMALS: Normal to inspection, nondistended, normoactive bowel sounds present and non-tender Extremity: NARRATIVE EXTREMITY EXAM: 1+ edema, anasarca Neuro: COMMON NORMALS: patient oriented x3 Psych: COMMON NORMALS: mental status grossly normal Data 01/27/24 04:41 01/27/24 04:41 Micro: Microbiology 01/25/24 14:10 Blood Culture - Preliminary Blood NEGATIVE TO DATE 01/25/24 14:14 Blood Culture - Preliminary Blood NEGATIVE TO DATE A&P Assessment and plan (1) Chronic hypotension: (2) Chronic orthostatic hypotension: (3) Recurrent syncope: (4) Neurogenic orthostatic hypotension: (5) Hypotension: (6) ESRD on dialysis: (7) Bilateral pleural effusion: (8) Hypoalbuminemia: Plan Chronic neurogenic orthostatic hypotension, with chronic recurrent syncope, with chronic hypotension -It seems as if patient is not responding that well to droxidopa 300 mg 3 times daily -She is never been on midodrine -The issue with dialysis is she is either developing hypotension, recurrent syncope during dialysis, -But she does very well when she is placed in Trendelenburg and they can dialyze her -When she was [facility] she tells her that took almost 20 pounds of fluid off of her -Now with fluid overload, anasarca, CHF exacerbation, pulmonary edema, bilateral pleural effusions, BNP over 70,000 Plan -Moved to medical floors -Placed on midodrine 5 3 times daily -Continue droxidopa -t, plan dialysis today -Consult nephrology for dialysis -Monitor for syncopal episodes if so placed in Trendelenburg, -Continue fludrocortisone -NSTEMI, no chest pain complaints, aspirin, statin, telemetry monitoring CONCLUSIONS Normal LV size and ejection fraction of 68%. No gross wall motion abnormality.Grade I/IV diastolic dysfunction (abnormal relaxation filling pattern), normal to mildly elevated filling pressures. Moderate mitral annular calcification. Possibly normal cardiac chamber sizes. Thickened aortic valve. Possibly large exudative pleural effusion Features of small pericardial effusion No similar previous studies are available for comparison -Now with acute anemia, hemoglobin 7.9, status post 1 unit PRBC, monitor hemoglobin this afternoon, hold Eliquis -She tells me that she is on Eliquis for atrial fibrillation, given anemia hold Eliquis -She also has hyperlipidemia, with anasarca, can consider albumin with dialysis -Will have to get medical records from [facility] as she is unsure of what happened during that hospitalization -Check TSH, within normal limits -Hyponatremia, resolved, monitor -DNR/DNI, confirmed with the patient multiple times - DVT prophylaxis, SCDs, Eliquis on hold due to acute anemia Attestations Medical Necessity Statement*: Patient requires hospitalization due to fluid overload requiring dialysis, acute anemia Diagnoses Chronic hypotension I95.89 Chronic orthostatic hypotension I95.1 Recurrent syncope R55 Neurogenic orthostatic hypotension G90.3 Hypotension I95.9 ESRD on dialysis N18.6; Z99.2 Bilateral pleural effusion J90 Hypoalbuminemia E88.09
[2024-01-27 12:36] LABS: Basophils # 0.1 10^3/uL (0.0-0.1); Basophils % 1.7 %; Hematocrit 26.5 % (36-47); Lymphocytes # 1.3 10^3/uL (0.8-4.8); Lymphocytes % 33.2 %; Mean Corpuscular HGB Conc 33.2 g/dL (30-55); Mean Corpuscular Hemoglobin 29.6 pg (27-33); Mean Corpuscular Volume 89.2 fl (85-98); Monocytes # 0.3 10^3/uL (0.2-0.9); Neutrophils # 2.28 10^3/uL (1.8-7.7); Neutrophils % 56.9 %; Nucleated Red Blood Cells % 0 %; Platelet Count 270 10^3/cmm (157-399); Red Blood Count 2.97 10^6/uL (3.85-5.65); Red Cell Distribution Width 17.5 % (12.1-15.1); White Blood Count 4.01 10^3/uL (3.29-11.43)
[2024-01-27] MEDS: heparin, porcine 1,000 unit/mL INJ 10 mL 1000 UNIT IV (12:37)
[2024-01-27] MEDS: heparin, porcine 1,000 unit/mL INJ 10 mL 10000 UNIT INTRACATH (12:45)
[2024-01-27] MEDS: sucralfate 1 gm Tablet PO (13:00)
[2024-01-27] MEDS: epoetin alfa 10,000 unit/mL INJ 10000 UNIT SUBCUT (13:37)
[2024-01-27] MEDS: folic acid 1 mg Tablet PO (17:45)
[2024-01-27] MEDS: pantoprazole 40 mg SDV IVP (17:45)
[2024-01-27 18:57] LABS: Hematocrit 26.3 % (36-47)
[2024-01-27] MEDS: atorvastatin 40 mg Tablet PO (21:21)
[2024-01-28] VITALS (7 sets, daily range): BP systolic 123–171; BP diastolic 77–104; PULSE 73–100; RESP 16–18; TEMP 36.4–37.1; O2SAT 95–97
[2024-01-28] MEDS: midodrine 5 mg TABLET PO ×4 (00:10→23:49)
[2024-01-28] MEDS: sucralfate 1 gm Tablet PO ×3 (00:10→23:49)
[2024-01-28 03:33] LABS: Basophils # 0.1 10^3/uL (0.0-0.1); Basophils % 1.9 %; Eosinophils % 0.5 %; Hematocrit 24.4 % (36-47); Lymphocytes # 1.8 10^3/uL (0.8-4.8); Lymphocytes % 42.7 %; Mean Corpuscular HGB Conc 32.8 g/dL (30-55); Mean Corpuscular Hemoglobin 28.9 pg (27-33); Mean Corpuscular Volume 88.1 fl (85-98); Mean Platelet Volume 10.2 fL (7.4-10.4); Monocytes # 0.4 10^3/uL (0.2-0.9); Neutrophils # 1.92 10^3/uL (1.8-7.7); Neutrophils % 44.7 %; Nucleated Red Blood Cells % 0 %; Platelet Count 297 10^3/cmm (157-399); Red Blood Count 2.77 10^6/uL (3.85-5.65); Red Cell Distribution Width 18.7 % (12.1-15.1); White Blood Count 4.29 10^3/uL (3.29-11.43)
[2024-01-28 03:58] LABS: Anion Gap 8.2 (5-19); Blood Urea Nitrogen 7 mg/dL (8-23); Calcium 7.1 mg/dL (8.5-10.5); Carbon Dioxide 27 mmol/L (22-29); Chloride 107 mmol/L (98-107); Creatinine Clr Calc Pharmacy 32.8371; Glomerular Filtration Rate 28.2 mL/min (90-130); Glucose 88 mg/dL (65-115); Osmolality Calculated 285 mOsm/kg (285-295); Potassium 3.2 mmol/L (3.5-5.1); Sodium 139 mmol/L (136-145)
[2024-01-28] MEDS: levothyroxine 125 mcg Tablet PO (05:15)
[2024-01-28] MEDS: pantoprazole 40 mg SDV IVP ×2 (05:15→17:30)
[2024-01-28] MEDS: aspirin 81 mg EC Tablet PO (09:16)
[2024-01-28] MEDS: fludrocortisone 0.1 mg Tablet PO ×2 (09:16→17:31)
[2024-01-28] MEDS: folic acid 1 mg Tablet PO ×2 (09:17→17:31)
--- NOTE | 2024-01-28 13:25 | PC.SOCIAL ---
IMM Update pg 2 of IMM Updated and reviewed w/ patient. Copy provided and copy dated, initialed and placed in chart.
--- NOTE | 2024-01-28 13:45 | PM.PN ---
Subjective Subjective: no new c/o Medications: Reviewed: Yes Vitals/I&O/Wt Last Vital Signs Temp 98.0 F 01/28/24 11:47 Pulse 76 01/28/24 11:47 Resp 18 01/28/24 11:47 BP 171/98 01/28/24 11:47 Pulse Ox 97 01/28/24 11:47 O2 Del Method Room Air 01/28/24 11:47 O2 Flow Rate 2 01/25/24 19:00 01/27/24 01/28/24 01/28/24 22:59 06:59 14:59 Intake Total 1220 / 1340 238 / 238 Output Total 1974 Balance -755 / -635 238 / 238 Weight last 48 hrs Weight 79.52 kg Weight 80.195 kg Weight 78.608 kg Physical Exam Narrative: awake , alert no distress S1S2 RRR per report Lungs clear per [facility] No edema Data 01/28/24 03:06 01/28/24 03:06 A&P Assessment and plan (1) ESRD on dialysis: Plan 1. End-stage renal disease: Etiology unclear, was started on dialysis in May 2023 via tunneled catheter. -Patient has fluctuating blood pressures and orthostatic hypotension/probable autonomic dysfunction, prior episodes of recurrent syncope and hypotension during dialysis. -Takes droxidopa as well as fludrocortisone and as needed midodrine - Patient is volume overloaded -plan for HD tomorrow -BP stable , continue midodrine to 5 mg TID 2. Recurrent syncope and orthostatic hypotension: Patient was extensively worked up in the past currently on fludrocortisone, currently blood pressures are stable in the 90s to 1 teens range. 3. Anemia: Will give WILFRIDO 4. HypothyroidISM 5. MBD: Will check Phos and vitamin D levels Patient evaluated using audiovisual cart. Time spent 40 minutes Attestations Medical Necessity Statement*: per [facility] Coding Level of Care Code Acute Code for Chg Fwd Diagnoses ESRD on dialysis N18.6; Z99.2
--- NOTE | 2024-01-28 15:35 | PM.PN ---
Subjective Subjective: Patient was seen this morning, she is alert oriented x 3, following all commands, patient's son is at bedside, she continues to complain of bilateral upper extremity edema, particularly the left hand, she has weeping edema with superficial abrasions are bleeding, she remains off the Eliquis, she tells me that the big issue is that when she leaves the hospital in order to get to dialysis clinic, she has to sit up in a car seat for 20 minutes, and by the time she gets her dialysis her blood pressures bottom out so they are not able to dialyze her effectively she becomes fluid overloaded, her and her son, she is contemplating potentially hospice as she tells me that she has been dealing with these issues for the last 9 months, she is tired of it, she is tired of these rehospitalization she was at [place] for almost 2 months, she remains bedbound, she tells me, she does not have a good quality of life, she would like to discuss her goals of care with the hospice/palliative care team Vitals/I&O/Wt Last Vital Signs Temp 98.0 F 01/28/24 11:47 Pulse 76 01/28/24 11:47 Resp 18 01/28/24 11:47 BP 171/98 01/28/24 11:47 Pulse Ox 97 01/28/24 11:47 O2 Del Method Room Air 01/28/24 11:47 O2 Flow Rate 2 01/25/24 19:00 01/28/24 01/28/24 01/28/24 06:59 14:59 22:59 Intake Total 238 / 238 Balance 238 / 238 Weight last 48 hrs Weight 79.52 kg Weight 80.195 kg Weight 78.608 kg Physical Exam Const: COMMON NORMALS: no acute distress and patient oriented x3 Resp: COMMON NORMALS: normal respiratory effort, No retractions, No use of accessory muscles and clear to auscultation bilaterally AUSCULTATION: clear to auscultation bilaterally Cardio: COMMON NORMALS: regular rate, regular rhythm, S1 normal heart sound present and S2 normal heart sound present RATE: regular rate RHYTHM: regular rhythm HEART SOUNDS: S1 normal heart sound present and S2 normal heart sound present GI: COMMON NORMALS: Normal to inspection, nondistended, normoactive bowel sounds present and non-tender Extremity: COMMON NORMALS: no pedal edema Neuro: COMMON NORMALS: patient oriented x3 Psych: COMMON NORMALS: mental status grossly normal Skin: NARRATIVE SKIN EXAM: Multiple superficial abrasions, bilateral upper arms, His left arm weeping edema, superficial abrasions requiring dressing changes due to bleeding ? Bilateral upper extremity edema Data 01/28/24 03:06 01/28/24 03:06 A&P Assessment and plan (1) Chronic hypotension: (2) Chronic orthostatic hypotension: (3) Recurrent syncope: (4) Neurogenic orthostatic hypotension: (5) Hypotension: (6) ESRD on dialysis: (7) Bilateral pleural effusion: (8) Hypoalbuminemia: Plan Chronic neurogenic orthostatic hypotension, with chronic recurrent syncope, with chronic hypotension -It seems as if patient is not responding that well to droxidopa 300 mg 3 times daily -She is never been on midodrine -The issue with dialysis is she is either developing hypotension, recurrent syncope during dialysis, -But she does very well when she is placed in Trendelenburg and they can dialyze her -When she was at [facility] she tells her that took almost 20 pounds of fluid off of her -Now with fluid overload, anasarca, CHF exacerbation, pulmonary edema, bilateral pleural effusions, BNP over 70,000 Plan -Moved to medical floors -Placed on midodrine 5 3 times daily -Continue droxidopa -Plan on dialysis tomorrow -Consult nephrology for dialysis -Monitor for syncopal episodes if so placed in Trendelenburg, -Continue fludrocortisone -NSTEMI, no chest pain complaints, aspirin, statin, telemetry monitoring CONCLUSIONS Normal LV size and ejection fraction of 68%. No gross wall motion abnormality.Grade I/IV diastolic dysfunction (abnormal relaxation filling pattern), normal to mildly elevated filling pressures. Moderate mitral annular calcification. Possibly normal cardiac chamber sizes. Thickened aortic valve. Possibly large exudative pleural effusion Features of small pericardial effusion No similar previous studies are available for comparison -Now with acute anemia, hemoglobin 7.9, status post 1 unit PRBC, monitor hemoglobin this afternoon, hold Eliquis -She tells me that she is on Eliquis for atrial fibrillation, given anemia hold Eliquis -She also has hyperlipidemia, with anasarca, can consider albumin with dialysis -Will have to get medical records from [facility] as she is unsure of what happened during that hospitalization -Check TSH, within normal limits -Hyponatremia, resolved, monitor -DNR/DNI, confirmed with the patient multiple times - DVT prophylaxis, SCDs, Eliquis on hold due to acute anemia Plan for today continue to monitor inpatient, monitor hemoglobin monitor hemodynamics Attestations Medical Necessity Statement*: Patient requires hospitalization for neurogenic orthostatic hypotension, edema Diagnoses Chronic hypotension I95.89 Chronic orthostatic hypotension I95.1 Recurrent syncope R55 Neurogenic orthostatic hypotension G90.3 Hypotension I95.9 ESRD on dialysis N18.6; Z99.2 Bilateral pleural effusion J90 Hypoalbuminemia E88.09
[2024-01-28 16:54] LABS: Bacillus cereus group Not Detected (NOT DETECT); Bacillus subtillis group Not Detected (NOT DETECT); Corynebacterium Not Detected (NOT DETECT); Cutibacterium acnes (P.acnes) Not Detected (NOT DETECT); Enterococcus Not Detected (NOT DETECT); Enterococcus faecalis Not Detected (NOT DETECT); Enterococcus faecium Not Detected (NOT DETECT); Lactobacillus species Not Detected (NOT DETECT); Listeria Not Detected (NOT DETECT); Listeria monocytogenes Not Detected (NOT DETECT); Micrococcus Not Detected (NOT DETECT); Pan Candida Not Detected (NOT DETECT); Pan Gram-Negative Not Detected (NOT DETECT); Staphylococcus epidermidis Not Detected (NOT DETECT); Staphylococcus lugdunensis Not Detected (NOT DETECT); Staphylococcus species Not Detected (NOT DETECT); Streptococcus agalactiae Not Detected (NOT DETECT); Streptococcus anginosus group Not Detected (NOT DETECT); Streptococcus pneumoniae Not Detected (NOT DETECT); Streptococcus pyogenes Not Detected (NOT DETECT); Streptococcus species Not Detected (NOT DETECT)
[2024-01-28] MEDS: atorvastatin 40 mg Tablet PO (21:42)
[2024-01-29] VITALS (7 sets, daily range): BP systolic 130–165; BP diastolic 86–103; PULSE 64–82; RESP 16–18; TEMP 36.4–36.9; O2SAT 94–98
[2024-01-29 04:11] LABS: Basophils # 0.1 10^3/uL (0.0-0.1); Basophils % 1.4 %; Eosinophils # 0.1 10^3/uL (0.0-0.8); Eosinophils % 1.7 %; Hematocrit 26.4 % (36-47); Lymphocytes # 1.5 10^3/uL (0.8-4.8); Mean Corpuscular HGB Conc 32.2 g/dL (30-55); Mean Corpuscular Hemoglobin 29.2 pg (27-33); Mean Corpuscular Volume 90.7 fl (85-98); Mean Platelet Volume 9.2 fL (7.4-10.4); Monocytes # 0.5 10^3/uL (0.2-0.9); Monocytes % 11.1 %; Neutrophils # 2.08 10^3/uL (1.8-7.7); Neutrophils % 50.3 %; Nucleated Red Blood Cells % 0 %; Platelet Count 289 10^3/cmm (157-399); Red Blood Count 2.91 10^6/uL (3.85-5.65); Red Cell Distribution Width 17.9 % (12.1-15.1); White Blood Count 4.14 10^3/uL (3.29-11.43)
[2024-01-29 04:38] LABS: Anion Gap 10.1 (5-19); Blood Urea Nitrogen 9 mg/dL (8-23); Calcium 7.8 mg/dL (8.5-10.5); Carbon Dioxide 28 mmol/L (22-29); Chloride 102 mmol/L (98-107); Glomerular Filtration Rate 17.6 mL/min (90-130); Glucose 81 mg/dL (65-115); Osmolality Calculated 282 mOsm/kg (285-295); Potassium 3.1 mmol/L (3.5-5.1); Sodium 137 mmol/L (136-145)
[2024-01-29] MEDS: levothyroxine 125 mcg Tablet PO (06:00)
[2024-01-29] MEDS: pantoprazole 40 mg SDV IVP ×2 (06:00→17:13)
[2024-01-29] MEDS: aspirin 81 mg EC Tablet PO (09:12)
[2024-01-29] MEDS: folic acid 1 mg Tablet PO ×2 (09:12→17:13)
[2024-01-29] MEDS: fludrocortisone 0.1 mg Tablet PO ×2 (09:12→17:13)
--- NOTE | 2024-01-29 11:17 | P.PN_ITS ---
Subjective 2 Subjective: pt refusing HD wants to stop HD and transition to comfort care/ hopsice Medications: Reviewed: Yes Vitals/I&O/Wt Last Vital Signs Temp 97.6 F 01/29/24 07:24 Pulse 82 01/29/24 07:24 Resp 16 01/29/24 07:24 BP 165/101 01/29/24 07:24 Pulse Ox 94 01/29/24 07:24 O2 Del Method Room Air 01/29/24 07:24 O2 Flow Rate 2 01/25/24 19:00 01/28/24 01/29/24 01/29/24 22:59 06:59 14:59 Intake Total 120 / 358 120 / 120 Balance 120 / 358 120 / 120 Weight last 48 hrs Weight 78.528 kg Weight 79.52 kg Weight 80.195 kg Physical Exam 2 Narrative: awake , alert no distress S1S2 RRR per report Lungs clear per [facility] No edema Data 01/29/24 03:43 01/29/24 03:43 Micro: Microbiology 01/25/24 14:10 Blood Culture - Preliminary Blood A&P Assessment and plan (1) ESRD on dialysis: Plan 1. End-stage renal disease: Etiology unclear, was started on dialysis in May 2023 via tunneled catheter. -Patient has fluctuating blood pressures and orthostatic hypotension/probable autonomic dysfunction, prior episodes of recurrent syncope and hypotension during dialysis. -Takes droxidopa as well as fludrocortisone and as needed midodrine on midodrine to 5 mg TID pt wishes to stop HD and transition to comfort care /Hospice 2. Recurrent syncope and orthostatic hypotension: Patient was extensively worked up in the past currently on fludrocortisone, currently blood pressures are stable in the 90s to 1 teens range. 3. Anemia: s/p WILFRIDO 4. Hypothyroidism 5. MBD: Will check Phos and vitamin D levels will sign off Patient evaluated using audiovisual cart. Time spent 40 minutes Attestations 2 Medical Necessity Statement*: per eliel Coding Level of Care Code Acute Code for Chg Fwd Diagnoses ESRD on dialysis N18.6; Z99.2
--- NOTE | 2024-01-29 16:16 | P.PN_ITS ---
Subjective 2 Subjective: - Patient was examined this morning -She is alert oriented x 4, follows all commands, early this morning she tells me she does not want to have dialysis, she had an extensive discussion with her family, and with hospice yesterday, she wants to proceed with hospice -We had a detailed discussion with her a bout the risks and benefits of hospice, she voiced understanding, all questions answered, agreed to proceed with hospice -I did have a discussion with her that I have reviewed the records from [place], and I believe that she has a disease called amyloidosis, she confirms that Connie was also worried about this disease but they were not able to get any definitive answers from the testing -I had a discussion with her that she di d have extensive testing at [facility] including a cardiac MRI, fat pad biopsy electrophysiology evaluation, endocrinology evaluation, neurology, hematology, bone marrow transplant, CSF studies, 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 -I advised her that based upon her clini noemi history, of her developing conduction abnormalities/bradycardia requiring pacemaker placement at [place], then renal failure requiring dialysis, then her neurogenic orthostatic hypotension, her persistent edema, her deconditioned state, this all points towards amyloidosis -However based upon the test results I r eviewed from [place] they had a high clinical suspicion for it, but there was no significant testing that showed good evidence of it -But I did discuss with her that amyloid osis is a nefarious disease, sometimes the testing is normal, sometimes the tissue that we biopsy or sample or look for evidence for amyloidosis does not have enough clinical disease to warrant positive test results, such as sampling error or the sample does not have enough disease -I did discuss with her that she could c ertainly seek a second opinion at a bigger hospital such as [facility], and potentially be a candidate for HCT or treatment for her amyloidosis -However she tells me that she has fough t this disease for over a year she is bedbound, she cannot walk, she is tired of fighting, and she is ready to be comfortable, she just want to pass away comfortably -We discussed hospice in detail, she is agreeable, I have started some hospice orders here such as morphine and Ativan if she needs it -I had a family meeting with the patient 's son and at bedside, we had a detailed discussion about my suspicions for amyloidosis, and they confirmed that Connie was also suspicious but testing was a bit lackluster, and they all talked about possible ECT therapy, but it never came to fruition, as she was so deconditioned, and she had to go to [facility], -We discussed also hospice care -Also discussed interventions for amyloi dosis, seeking a second opinion at a tertiary level center further testing -After discussing risk and benefits of a ll options, patient and family voiced understanding, all question answered, shared decision making, and want to proceed with hospice Vitals/I&O/Wt Last Vital Signs Temp 98.3 F 01/29/24 12:00 Pulse 64 01/29/24 12:00 Resp 16 01/29/24 12:00 BP 151/97 01/29/24 12:00 Pulse Ox 97 01/29/24 11:32 O2 Del Method Room Air 01/29/24 11:32 O2 Flow Rate 2 01/25/24 19:00 01/29/24 01/29/24 01/29/24 06:59 14:59 22:59 Intake Total 120 / 120 Balance 120 / 120 Weight last 48 hrs Weight 78.528 kg Weight 79.52 kg Weight 80.195 kg Physical Exam 2 Const: COMMON NORMALS: no acute distress and patient oriented x3 Resp: COMMON NORMALS: normal respiratory effort, No retractions, No use of accessory muscles and clear to auscultation bilaterally AUSCULTATION: clear to auscultation bilaterally Cardio: COMMON NORMALS: regular rate, regular rhythm, S1 normal heart sound present and S2 normal heart sound present RATE: regular rate RHYTHM: r egular rhythm HEART SOUNDS: S1 normal heart sound present and S2 normal heart sound present GI: COMMON NORMALS: Normal to inspection, nondistended, normoactive bowel sounds present and non-tender Extremity: COMMON NORMALS: no pedal edema Neuro: COMMON NORMALS: patient oriented x3 Psych: COMMON NORMALS: mental status grossly normal Skin: NARRATIVE SKIN EXAM: Peripheral edema bilateral upper extremities, anasarca, Data 01/29/24 03:43 01/29/24 03:43 Micro: Microbiology 01/25/24 14:10 Blood Culture - Preliminary Blood A&P Assessment and plan (1) Chronic hypotension: (2) Chronic orthostatic hypotension: (3) Recurrent syncope: (4) Neurogenic orthostatic hypotension: (5) Hypotension: (6) ESRD on dialysis: (7) Bilateral pleural effusion: (8) Hypoalbuminemia: (9) Encounter for hospice care discussion: Plan Patient proceeding with hospice care, will try to set up hospice care on Wednesday, she does want to go ahead with dialysis tomorrow Chronic neurogenic orthostatic hypotension, with chronic recurrent syncope, with chronic hypotension -It seems as if patient is not responding that well to droxidopa 300 mg 3 times daily -She is never been on midodrine -The issue with dialysis is she is either developing hypotension, recurrent syncope during dialysis, -But she does very well when she is placed in Trendelenburg and they can dialyze her -When she was at [facility] she tells her that took almost 20 pounds of fluid off of her -Now with fluid overload, anasarca, CHF exacerbation, pulmonary edema, bilateral pleural effusions, BNP over 70,000 Plan -Moved to medical floors -Placed on midodrine 5 3 times daily -Continue droxidopa -Plan on dialysis tomorrow -Consult nephrology for dialysis -Monitor for syncopal episodes if so placed in Trendelenburg, -Continue fludrocortisone -NSTEMI, no chest pain complaints, aspirin, statin, telemetry monitoring CONCLUSIONS Normal LV size and ejection fraction of 68%. No gross wall motion abnormality.Grade I/IV diastolic dysfunction (abnormal relaxation filling pattern), normal to mildly elevated filling pressures. Moderate mitral annular calcification. Possibly normal cardiac chamber sizes. Thickened aortic valve. Possibly large exudative pleural effusion Features of small pericardial effusion No similar previous studies are available for comparison -Now with acute anemia, hemoglobin 7.9, status post 1 unit PRBC, monitor hemoglobin this afternoon, hold Eliquis -She tells me that she is on Eliquis for atrial fibrillation, given anemia hold Eliquis -She also has hyperlipidemia, with anasarca, can consider albumin with dialysis -Will have to get medical records from [facility] as she is unsure of what happened during that hospitalization -Check TSH, within normal limits -Hyponatremia, resolved, monitor -DNR/DNI, confirmed with the patient multiple times - DVT prophylaxis, SCDs, Eliquis on hold due to acute anemia Attestations 2 Medical Necessity Statement*: Patient requires hospitalization, proceeding with hospice Diagnoses Chronic hypotension I95.89 Chronic orthostatic hypotension I95.1 Recurrent syncope R55 Neurogenic orthostatic hypotension G90.3 Hypotension I95.9 ESRD on dialysis N18.6; Z99.2 Bilateral pleural effusion J90 Hypoalbuminemia E88.09 Encounter for hospice care discussion Z71.89
[2024-01-29] MEDS: atorvastatin 40 mg Tablet PO (20:28)
[2024-01-30] VITALS: BP 150/93; PULSE 72; RESP 18; TEMP 36.8; O2SAT 98
[2024-01-30] MEDS: sucralfate 1 gm Tablet PO ×3 (00:03→20:52)
[2024-01-30 04:00] VITALS: BP 154/94; PULSE 54; RESP 18; TEMP 36.8; O2SAT 99
[2024-01-30] MEDS: levothyroxine 125 mcg Tablet PO (06:03)
[2024-01-30] MEDS: pantoprazole 40 mg SDV IVP ×2 (06:04→18:26)
[2024-01-30 07:23] VITALS: BP 158/102; PULSE 98; RESP 15; TEMP 36.7; O2SAT 97
--- NOTE | 2024-01-30 09:51 | PM.PN ---
Subjective Subjective: NO NEW COMPLAINTS Medications: Reviewed: Yes Vitals/I&O/Wt Last Vital Signs Temp 98.0 F 01/30/24 07:23 Pulse 98 01/30/24 07:23 Resp 15 01/30/24 07:23 BP 158/102 01/30/24 07:23 Pulse Ox 97 01/30/24 07:23 O2 Del Method Room Air 01/30/24 04:00 O2 Flow Rate 2 01/25/24 19:00 01/29/24 01/30/24 01/30/24 22:59 06:59 14:59 Intake Total 0 / 120 0 / 120 Balance 0 / 120 0 / 120 Weight last 48 hrs Weight 78.97 kg Weight 78.528 kg Physical Exam Narrative: awake , alert no distress S1S2 RRR per report Lungs clear per [facility] No edema Data 01/29/24 03:43 01/29/24 03:43 A&P Assessment and plan (1) ESRD on dialysis: Plan 1. End-stage renal disease: Etiology unclear, was started on dialysis in May 2023 via tunneled catheter. -Patient has fluctuating blood pressures and orthostatic hypotension/probable autonomic dysfunction, prior episodes of recurrent syncope and hypotension during dialysis. -Takes droxidopa as well as fludrocortisone and as needed midodrine on midodrine to 5 mg TID pt wishes to stop [facility] HD and transition to comfort care /Hospice but wants to do HD today while in hospital 2. Recurrent syncope and orthostatic hypotension: Patient was extensively worked up in the past currently on fludrocortisone, currently blood pressures are stable in the 90s to 1 teens range. 3. Anemia: s/p WILFRIDO 4. Hypothyroidism 5. MBD: Will check Phos and vitamin D levels will sign off Patient evaluated using audiovisual cart. Time spent 40 minutes Attestations Medical Necessity Statement*: per [facility] Coding Level of Care Code Acute Code for Chg Fwd Diagnoses ESRD on dialysis N18.6; Z99.2
[2024-01-30] MEDS: aspirin 81 mg EC Tablet PO (09:59)
[2024-01-30] MEDS: folic acid 1 mg Tablet PO ×2 (09:59→18:26)
[2024-01-30] MEDS: fludrocortisone 0.1 mg Tablet PO ×2 (10:03→18:26)
--- NOTE | 2024-01-30 11:01 | P.PN_ITS ---
Subjective 2 Subjective: Patient was seen this morning, she tells me that she did not get much sleep overnight, we discussed adding on potentially Ambien to help her sleep tonight, she does want dialysis today, and she does plan on transitioning to hospice tomorrow, she also wants her medications that she does not need to be stopped, and we also discussed her dialysis catheter, as she does not want any more dialysis after today's session we can remove the dialysis catheter tomorrow Vitals/I&O/Wt Last Vital Signs Temp 98.0 F 01/30/24 07:23 Pulse 98 01/30/24 07:23 Resp 15 01/30/24 07:23 BP 158/102 01/30/24 07:23 Pulse Ox 97 01/30/24 07:23 O2 Del Method Room Air 01/30/24 04:00 O2 Flow Rate 2 01/25/24 19:00 01/29/24 01/30/24 01/30/24 22:59 06:59 14:59 Intake Total 0 / 120 0 / 120 Balance 0 / 120 0 / 120 Weight last 48 hrs Weight 78.97 kg Weight 78.528 kg Physical Exam 2 Const: COMMON NORMALS: no acute distress and patient oriented x3 Resp: COMMON NORMALS: normal respiratory effort, No retractions, No use of accessory muscles and clear to auscultation bilaterally AUSCULTATION: clear to auscultation bilaterally Cardio: COMMON NORMALS: regular rate, regular rhythm, S1 normal heart sound present and S2 normal heart sound present RATE: regular rate RHYTHM: r egular rhythm HEART SOUNDS: S1 normal heart sound present and S2 normal heart sound present GI: COMMON NORMALS: Normal to inspection, nondistended, normoactive bowel sounds present and non-tender Extremity: COMMON NORMALS: no pedal edema Neuro: COMMON NORMALS: patient oriented x3 Psych: COMMON NORMALS: mental status grossly normal Data 01/29/24 03:43 01/29/24 03:43 A&P Assessment and plan (1) Chronic hypotension: (2) Chronic orthostatic hypotension: (3) Recurrent syncope: (4) Neurogenic orthostatic hypotension: (5) Hypotension: (6) ESRD on dialysis: (7) Bilateral pleural effusion: (8) Hypoalbuminemia: (9) Encounter for hospice care discussion: Plan Patient proceeding with hospice care, will try to set up hospice care on Wednesday, she does want to go ahead with dialysis tomorrow Chronic neurogenic orthostatic hypotension, with chronic recurrent syncope, with chronic hypotension -It seems as if patient is not responding that well to droxidopa 300 mg 3 times daily -She is never been on midodrine -The issue with dialysis is she is either developing hypotension, recurrent syncope during dialysis, -But she does very well when she is placed in Trendelenburg and they can dialyze her -When she was at [facility] she tells her that took almost 20 pounds of fluid off of her -Now with fluid overload, anasarca, CHF exacerbation, pulmonary edema, bilateral pleural effusions, BNP over 70,000 Plan -Moved to medical floors -Placed on midodrine 5 3 times daily -Continue droxidopa -Plan on dialysis tomorrow -Consult nephrology for dialysis -Monitor for syncopal episodes if so placed in Trendelenburg, -Continue fludrocortisone -NSTEMI, no chest pain complaints, aspirin, statin, telemetry monitoring CONCLUSIONS Normal LV size and ejection fraction of 68%. No gross wall motion abnormality.Grade I/IV diastolic dysfunction (abnormal relaxation filling pattern), normal to mildly elevated filling pressures. Moderate mitral annular calcification. Possibly normal cardiac chamber sizes. Thickened aortic valve. Possibly large exudative pleural effusion Features of small pericardial effusion No similar previous studies are available for comparison -Now with acute anemia, hemoglobin 7.9, status post 1 unit PRBC, monitor hemoglobin this afternoon, hold Eliquis -She tells me that she is on Eliquis for atrial fibrillation, given anemia hold Eliquis -She also has hyperlipidemia, with anasarca, can consider albumin with dialysis -Will have to get medical records from [facility] as she is unsure of what happened during that hospitalization -Check TSH, within normal limits -Hyponatremia, resolved, monitor -DNR/DNI, confirmed with the patient multiple times - DVT prophylaxis, SCDs, Eliquis on hold due to acute anemia Attestations 2 Medical Necessity Statement*: Patient requires hospitalization, transitioning to hospice Diagnoses Chronic hypotension I95.89 Chronic orthostatic hypotension I95.1 Recurrent syncope R55 Neurogenic orthostatic hypotension G90.3 Hypotension I95.9 ESRD on dialysis N18.6; Z99.2 Bilateral pleural effusion J90 Hypoalbuminemia E88.09 Encounter for hospice care discussion Z71.89
[2024-01-30 11:25] VITALS: BP 148/95; PULSE 81; RESP 17; TEMP 36.4; O2SAT 94
[2024-01-30] MEDS: heparin, porcine 1,000 unit/mL INJ 10 mL 10000 UNIT INTRACATH ×2 (11:30→14:54)
[2024-01-30] MEDS: heparin, porcine 1,000 unit/mL INJ 10 mL 10000 UNIT HE (11:30)
[2024-01-30] MEDS: albumin 12.5 GM/50 ML VIAL IV ×3 (12:10→13:12)
--- NOTE | 2024-01-30 14:47 | PC.NURSE ---
patient retruned from dialysis at 1440. Family at bedside. Patient is comfortable and has no needs at this time. 2200 removed in dialysis
[2024-01-30] MEDS: heparin, porcine 1,000 unit/mL INJ 10 mL 1000 UNIT IV (14:54)
[2024-01-30 18:34] VITALS: BP 157/80; BP 172/120; PULSE 107; PULSE 85; RESP 18; TEMP 36.9
[2024-01-30 20:00] VITALS: BP 139/84; PULSE 89; RESP 16; TEMP 36.5; O2SAT 96
[2024-01-30] MEDS: atorvastatin 40 mg Tablet PO (20:52)
[2024-01-31] VITALS: BP 161/89; PULSE 77; RESP 17; TEMP 36.9; O2SAT 96
[2024-01-31 04:00] VITALS: BP 144/87; PULSE 76; RESP 16; TEMP 37; O2SAT 97
[2024-01-31] MEDS: levothyroxine 125 mcg Tablet PO (05:40)
[2024-01-31] MEDS: pantoprazole 40 mg SDV IVP (05:40)
[2024-01-31 07:32] VITALS: BP 147/85; PULSE 67; RESP 14; TEMP 36.4; O2SAT 97
[2024-01-31] MEDS: sucralfate 1 gm Tablet PO (09:54)
[2024-01-31] MEDS: fludrocortisone 0.1 mg Tablet PO (09:54)
[2024-01-31] MEDS: aspirin 81 mg EC Tablet PO (09:55)
[2024-01-31] MEDS: folic acid 1 mg Tablet PO (09:55)
--- NOTE | 2024-01-31 11:31 | PM.DCS ---
Discharge Providers Date of Admission: 01/25/24 15:27 Date of Discharge: January 31, 2024 Attending Provider at Admission: Jacinto Schmidt MD Attending Provider at Discharge: Jacinto Schmidt MD Diagnoses at Discharge Discharge Diagnosis (1) Chronic hypotension: Status: Acute (2) Chronic orthostatic hypotension: Status: Acute (3) Recurrent syncope: Status: Acute (4) Neurogenic orthostatic hypotension: Status: Acute (5) Hypotension: Status: Acute (6) ESRD on dialysis: Status: Acute (7) Bilateral pleural effusion: Status: Acute (8) Hypoalbuminemia: Status: Acute (9) Encounter for hospice care discussion: Status: Acute Reason for Visit Reason for Visit: Hypotensive Hospital Course Hospital Course Nikki Venegas is a 68 year old female with a past medical history of neurogenic orthostatic hypotension on droxidopa and fludrocortisone, history of low blood pressure, history of recurrent syncope especially when her legs are dropped, end-stage renal disease on dialysis causes unknown, Melva lift dependent, bedbound, who presents to [facility] due to low blood pressure and syncope. Currently patient is alert oriented x 3, following all commands, blood pressure 91/73 she tells me that to not worry about her blood pressure, as her blood pressure is always low. She tells me that her medical case starts in May 2023, when she was climbing her stairs to her home, she had just returned from work and she passed out. From there she got it admitted to [facility], she developed end-stage renal disease, had a right tunneled dialysis catheter placed, from there she was transferred due to [facility] due to recurrent syncope and low blood pressure, from there she was transferred to [facility] as she tells me they could not figure it out, so from there she was transferred to [facility], she jokes with me that she was considered a resident at [facility] as she was there for a month, she is not exactly sure why she was there for that long but she tells me that she was having issues with low blood pressures, and recurrent syncope, from there she was transferred to [facility] in [place]. She tells me that she did have good physical therapy she got up a good amount of dialysis there, they took about 20 pounds of fluid off of her, and eventually she was discharged home. She has been home for about a month and a half. She gets dialysis the outpatient dialysis center she tells me that she does frequently at times pass out, which is not unusual for her, especially when her blood pressures drop when she stands up her legs are dropped this is not unusual. This is what was happening she tells me at [place] and at [facility] and they could not figure why this was happening, they told her that she had something called neurogenic orthostatic hypotension, but they could not find any other reason why, she denies having a heart attack, no stroke no diabetes, no issues with her liver, she denies being intubated, she is quite fluid overloaded currently she has diffuse anasarca, weeping edema of her both arms or legs, she tells me that she has been like this for about a week or so, they did take fluid off of her at the dialysis center more than a week ago, but since then they have been taking fluid off of her because of her low blood pressure, she is supposed to use a droxidopa before dialysis. She is not exactly sure why she is on dialysis, but that she is in renal failure she does not urinate anymore but she is not exactly sure what is the cause. She tells me that before her fall in May she was fully functional individual able to work, was able to take care of herself, now she is fully dependent on her Patient was admitted to [facility] for acute on chronic neurogenic orthostatic hypotension with chronic recurrent syncope, fluid overload, CHF exacerbation, pulmonary edema, bilateral pleural effusions, anasarca, BNP over 70,000. Patient was admitted to [facility], placed on midodrine, received inpatient diuresis, also developed acute anemia requiring 1 unit PRBC transfusion, Eliquis was held. Patient was monitored as inpatient, no recurrent syncopal episodes, continue to have issues with fluid overload, bilateral upper extremity edema, generalized weakness, fatigue, malaise, deconditioning. -I did have a discussion with her that I have reviewed the records from [place], and I believe that she has a disease called amyloidosis, she and her family confirms that [facility] was also worried about this disease but they were not able to get any definitive answers from the extensive testing they performed -I had a discussion with her that she did have extensive testing at [place] that I reviewed, including a cardiac MRI, fat pad biopsy electrophysiology evaluation, endocrinology evaluation, neurology, hematology, bone marrow biopsy, lumbar puncture with CSF studies, extensive endocrine testing, pacemaker testing by electrophysiology, cardiology evaluation, nephrology evaluation, 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 -I advised her that based upon her clinical history, of her developing conduction abnormalities/bradycardia requiring pacemaker placement at [facility], then renal failure requiring dialysis, then her neurogenic orthostatic hypotension, her persistent edema, her deconditioned state, this all points towards amyloidosis as the cause -However based upon the test results I reviewed from [facility] they had a high clinical suspicion for it, but there was lackluster evidence of it on testing -But I did discuss with her that amyloidosis is a nefarious disease, sometimes the testing is normal, sometimes the tissue that we biopsy or sample or look for evidence for amyloidosis does not have enough clinical disease to warrant positive test results, such as sampling error or the sample does not have enough disease -I did discuss with her that she could certainly seek a second opinion at a [facility] such as [facility], and potentially be a candidate for HCT or other treatment for her amyloidosis -However she tells me that she has fought this disease for over a year, she is bedbound, she cannot walk, she is deconditioned, she is tired, she is tired of fighting, and she is ready to be just comfortable, she just want to pass away comfortably -We discussed hospice in detail, she is agreeable, I gave her over 48 hours to come to a decision about hospice, she also met with the hospice team -We had an extensive family meeting, patient and family want to proceed with hospice -After discussing risk and benefits of all options, patient and family voiced understanding, all question answered, shared decision making, and want to proceed with hospice -Patient did receive 1 session of dialysis 01/30/2024, after that she tells me she does not want any more dialysis -Will be discharged home on hospice Physical Exam Const: COMMON NORMALS: no acute distress and patient oriented x3 Resp: COMMON NORMALS: normal respiratory effort, No retractions, No use of accessory muscles and clear to auscultation bilaterally AUSCULTATION: clear to auscultation bilaterally Cardio: COMMON NORMALS: regular rate, regular rhythm, S1 normal heart sound present and S2 normal heart sound present RATE: regular rate RHYTHM: regular rhythm HEART SOUNDS: S1 normal heart sound present and S2 normal heart sound present GI: COMMON NORMALS: Normal to inspection, nondistended, normoactive bowel sounds present and non-tender Extremity: COMMON NORMALS: no pedal edema Neuro: COMMON NORMALS: patient oriented x3 Psych: COMMON NORMALS: mental status grossly normal Discharge Data Studies Completed and Pending Completed Studies During Hospitalization Category Date Time Status XR chest 1V portable [id number] Stat Exams 01/25/24 13:13 Completed CV. echo complete* [id number] Routine Ultrasound 01/25/24 17:27 Completed Pending at discharge Category Date Time Status Blood Culture Stat Lab 01/25/24 14:14 Results Immunofixation (ALEX), Urine Routine Lab 01/28/24 15:46 Uncollected Immunofixation Serum Stat Lab 01/28/24 03:43 Received Occult Blood Stool [Immunochemical Fecal OCB] Routine Lab 01/26/24 08:21 Uncollected SPEP [Total Protein Electrophoresis] Routine Lab 01/28/24 03:43 Received Urinalysis Routine Lab 01/25/24 17:27 Uncollected Urine Protein Electrop Random Routine Lab 01/28/24 15:46 Uncollected Radiology Impressions Chest X-Ray 01/25/24 13:13 IMPRESSION: 1. Moderate-sized bilateral pleural effusions. 2. Bibasilar pulmonary opacities favored to represent atelectasis although could obscure other underlying process. Laboratory Results WBC 4.14 10^3/uL (3.29-11.43) 01/29/24 03:43 RBC 2.91 10^6/uL (3.85-5.65) L 01/29/24 03:43 Hgb 8.50 g/dL (11.27-16.99) L 01/29/24 03:43 Hct 26.4 % (36-47) L 01/29/24 03:43 MCV 90.7 fl (85-98) 01/29/24 03:43 MCH 29.2 pg (27-33) 01/29/24 03:43 MCHC 32.2 g/dL (30-55) 01/29/24 03:43 RDW 17.9 % (12.1-15.1) H 01/29/24 03:43 Plt Count 289 10^3/cmm (157-399) 01/29/24 03:43 MPV 9.2 fL (7.4-10.4) 01/29/24 03:43 Neut % (Auto) 50.3 % 01/29/24 03:43 Lymph % (Auto) 35.0 % 01/29/24 03:43 Mccreary % (Auto) 11.1 % 01/29/24 03:43 Eos % (Auto) 1.7 % 01/29/24 03:43 Baso % (Auto) 1.4 % 01/29/24 03:43 Neut # (Auto) 2.08 10^3/uL (1.8-7.7) 01/29/24 03:43 Lymph # (Auto) 1.5 10^3/uL (0.8-4.8) 01/29/24 03:43 Mccreary # (Auto) 0.5 10^3/uL (0.2-0.9) 01/29/24 03:43 Eos # (Auto) 0.1 10^3/uL (0.0-0.8) 01/29/24 03:43 Baso # (Auto) 0.1 10^3/uL (0.0-0.1) 01/29/24 03:43 Nucleated RBC % (auto) 0 % 01/29/24 03:43 Nucleated RBCs # 0.0 /100WBC 01/29/24 03:43 Peripher Smr Path Cons Sent for review 01/27/24 04:10 ESR 1 mm/hr (0-15) 01/25/24 13:41 PT 20.40 SECONDS (12.1-14.9) H 01/25/24 13:41 INR 1.68 (0.8-1.2) H 01/25/24 13:41 Sodium 137 mmol/L (136-145) 01/29/24 03:43 Potassium 3.1 mmol/L (3.5-5.1) L 01/29/24 03:43 Chloride 102 mmol/L (98-107) 01/29/24 03:43 Carbon Dioxide 28 mmol/L (22-29) 01/29/24 03:43 Anion Gap 10.1 (5-19) 01/29/24 03:43 BUN 9 mg/dL (8-23) 01/29/24 03:43 Creatinine 2.7 mg/dL (0.5-0.9) H 01/29/24 03:43 GFR Calculation 17.6 mL/min (90-130) L 01/29/24 03:43 Glucose 81 mg/dL (65-115) 01/29/24 03:43 POC Glucose 100 mg/dL (70-110) 01/26/24 16:25 Estimat Average Glucose 94 01/25/24 13:41 Hemoglobin A1c 4.9 % (4.0-6.0) 01/25/24 13:41 Calculated Osmolality 282 mOsm/kg (285-295) L 01/29/24 03:43 Lactic Acid 1.7 mmol/L (0.5-2.2) 01/25/24 13:41 Calcium 7.8 mg/dL (8.5-10.5) L 01/29/24 03:43 Phosphorus 1.8 mg/dL (2.5-4.5) L 01/26/24 10:35 Magnesium 1.8 mg/dL (1.7-2.3) 01/25/24 13:41 Iron 24 ug/dL (37-145) L 01/26/24 10:35 Ferritin 355 ng/mL (15-150) H 01/26/24 10:35 Total Bilirubin 0.3 mg/dL (0.15-1.2) 01/25/24 13:41 AST 9 U/L (0-32) 01/25/24 13:41 ALT < 5 U/L (0-33) 01/25/24 13:41 Alkaline Phosphatase 122 U/L (35-105) H 01/25/24 13:41 Creatine Kinase 16 U/L (26-192) L 01/25/24 13:41 Troponin T Baseline 102 ng/L (0-10) H* 01/25/24 13:41 Troponin T 120 Minute 87.87 ng/L (0-10) H 01/25/24 15:32 Delta Troponin T -14.13 ABS# (0-10) L 01/25/24 15:32 Troponin T Hi Sens 6Hr 85.92 ng/L (0-10) H 01/25/24 21:34 Troponin T Hi Sens 6Hr Delta -16.08 ng/L (0-12) L 01/25/24 21:34 C-Reactive Protein 3.5 mg/L (0.0-4.9) 01/25/24 13:41 NT-Pro-B Natriuret Pep > 69547 pg/mL (0-125) H 01/25/24 13:41 Total Protein 4.8 g/dL (6.6-8.7) L 01/25/24 13:41 Albumin 2.3 g/dL (3.5-5.2) L 01/25/24 13:41 Globulin 2.5 g/dL (1.3-4.6) 01/25/24 13:41 Triglycerides 135 mg/dL (0-150) 01/25/24 13:41 Cholesterol 217 mg/dL (0-200) H 01/25/24 13:41 LDL Cholesterol, Calc 139 mg/dL (50-129) H 01/25/24 13:41 HDL Cholesterol 51 mg/dL (60-100) L 01/25/24 13:41 LDL/HDL Ratio 2.73 RATIO (0.00-3.22) 01/25/24 13:41 Cholesterol/HDL Ratio 4.25 mg/dL (0.0-4.40) 01/25/24 13:41 Vitamin B12 840 pg/mL (232-1245) 01/27/24 04:10 25-OH Vitamin D Total 74 ng/mL (30-100) 01/26/24 10:35 Folate 3.7 ng/mL (4.8-37.3) L 01/27/24 04:10 Procalcitonin 0.14 ng/mL (0-0.5) 01/25/24 13:41 TSH 2.11 uIU/mL (0.27-4.20) 01/25/24 13:41 Hep Bs Antigen Non-reactive (Nonreactive) 01/25/24 20:23 Hep Bs Antibody 3.8 (11.5-1000) L 01/25/24 20:23 Blood Type A Negative 01/26/24 11:11 Rho(D) Type Rh negative 01/26/24 11:11 Antibody Screen Negative 01/26/24 11:11 Crossmatch See Detail 01/26/24 11:11 Vitals Last Vital Signs Temp 97.6 F 01/31/24 07:32 Pulse 67 01/31/24 07:32 Resp 14 01/31/24 07:32 BP 147/85 01/31/24 07:32 Pulse Ox 97 01/31/24 07:32 O2 Del Method Room Air 01/31/24 07:32 O2 Flow Rate 2 01/25/24 19:00 Discharge Plan Discharge Patient Disposition: Hospice - Home Condition: Stable Prescriptions: Continued levothyroxine 125 mcg tablet 125 mcg PO QAM Discontinued pantoprazole 40 mg tablet,delayed release (DR/EC) 40 mg PO BID mupirocin 2 % ointment 1 applic TOPICAL DAILY ergocalciferol (vitamin D2) 1,250 mcg (50,000 unit) capsule 50,000 mcg PO Q7D fludrocortisone 0.1 mg tablet 0.1 mg PO BID Eliquis 5 mg tablet 5 mg PO BID droxidopa 300 mg capsule 300 mg PO TID PRN (Reason: parkinsons) Discharge Orders: Discharge Order (Routine); Ordered 01/31/24 Ordered By: Jacinto Schmidt Referrals: Real Romero DO [Family Provider] - Discharge Diet: Regular Discharge Activity: Resume usual activity Patient Instructions: Dialysis Diet (DC), Hemodialysis (DC) Discharge Attestations Time Spent in Discharge Care*: greater than 30 min Quality Metrics Clinical Quality Measures [ No reported AMI, CVA or VTE this stay] Coding Level of Care Code 73498 Total time (in minutes) for Discharge: 45 Diagnoses Chronic hypotension I95.89 Chronic orthostatic hypotension I95.1 Recurrent syncope R55 Neurogenic orthostatic hypotension G90.3 Hypotension I95.9 ESRD on dialysis N18.6; Z99.2 Bilateral pleural effusion J90 Hypoalbuminemia E88.09 Encounter for hospice care discussion Z71.89
[2024-01-31 12:00] VITALS: BP 131/83; PULSE 92; RESP 17; TEMP 36.5; O2SAT 98
--- NOTE | 2024-01-31 14:33 | PC.NURSE ---
Discharge delay was due to patient waiting for transportation to arrive.
[2024-01-31 15:00] VITALS: BP 131/83; PULSE 92; RESP 17; TEMP 36.5; O2SAT 98
[2024-02-01 06:34] LABS: PROTEIN, TOTAL 3.4 g/dL (6.1-8.1)
[2024-02-01 09:35] LABS: ABNORMAL PROTEIN BAND 1 0.1 g/dL (NONE DETECTED); ALBUMIN 1.8 g/dL (3.8-4.8); ALPHA 1 GLOBULIN 0.2 g/dL (0.2-0.3); ALPHA 2 GLOBULIN 0.3 g/dL (0.5-0.9); BETA 1 GLOBULIN 0.1 g/dL (0.4-0.6); BETA 2 GLOBULIN 0.2 g/dL (0.2-0.5); GAMMA GLOBULIN 0.7 g/dL (0.8-1.7)
== END 2024-01-31 15:00 | disposition hospice, home (50) | DRG 56 ==
LOC: ER 14:25 → ICU 15:36 → MEDSURG 01-26 14:45
PROVIDERS: Hospitalist; Admitting Provider Family Medicine; Emergency Provider Emergency Medicine; PCP Nurse Practitioner Family; Visit Provider Family Medicine
DX: G90.3 Multi-system degeneration of the autonomic nervous system (principal); N18.6 End stage renal disease; E87.1 Hypo-osmolality and hyponatremia; E87.70 Fluid overload, unspecified; I50.9 Heart failure, unspecified; E88.09 Other disorders of plasma-protein metabolism, not elsewhere classified; I48.91 Unspecified atrial fibrillation; D63.1 Anemia in chronic kidney disease; E03.9 Hypothyroidism, unspecified; Z66 Do not resuscitate; Z99.2 Dependence on renal dialysis; Z74.01 Bed confinement status; Z79.01 Long term (current) use of anticoagulants; Z95.0 Presence of cardiac pacemaker
CPT/HCPCS: 36415; 36416; 36430; 71045; 80048; 80053; 80061; 80503; 82306; 82550; 82607; 82728; 82746; 82962; 83036; 83540; 83605; 83735; 83880; 84100; 84145; 84155; 84165; 84443; 84484; 85014; 85018; 85025; 85610; 85651; 86140; 86334; 86706; 86850; 86900; 86920; 87040; 87205; 87340; 90935; 93005; 93306; 94664; 96365; 96372; 96375; 99291; 99292; J0456; J0696; J1644; J2470; J7050; P9016; P9047; Q3014; Q4081